=== PATIENT | male | born 1995 | race Caucasian/White ===

== ENCOUNTER 2016-10-19 13:22 | Inpatient (IN) | payer MEDICAID, OTHER ==
--- NOTE | 2016-10-19 14:00 | ED ---
General Adult HPI - General Chief complaint: Psychiatric Symptoms Stated complaint: Suicidal Time Seen by Provider: 10/19/16 13:45 Source: patient, RN notes reviewed Mode of arrival: ambulatory Limitations: no limitations - History of Present Illness Initial comments: This is a 21-year-old male presents emergency department because his been having suicidal thoughts. Patient states his been having them for years but has been getting worse lately. Patient states she's never told anybody until today. When he does mother's mother brought him into the emergency department. Patient states he's been thinking about driving his car off the road and kill himself. Patient states he doesn't really know why he is angry he did have a girlfriend that she, year ago not really upset him and made him angry. Patient states he thought he was given a Luanne her. Patient denies any alcohol use or drug use. Patient denies any physical complaints today. Patient denies headache patient denies numbness weakness. Patient denies recent fever chills or cough. Patient denies shortness of breath or difficulty breathing. Patient denies abdominal pain patient denies nausea vomiting or diarrhea. - Related Data Home Medications Medication Instructions Recorded Confirmed No Known Home Medications [No 10/19/16 10/19/16 Known Home Medications] Allergies Allergy/AdvReac Type Severity Reaction Status Date / Time No Known Allergies Allergy Verified 10/19/16 14:47 Review of Systems ROS Statement: Those systems with pertinent positive or pertinent negative responses have been documented in the HPI. ROS Other: All systems not noted in ROS Statement are negative. Past Medical History Past Medical History: No Reported History History of Any Multi-Drug Resistant Organisms: None Reported Additional Past Surgical History / Comment(s): testicular sx Past Psychological History: Depression Smoking Status: Current every day smoker Past Alcohol Use History: None Reported Past Drug Use History: None Reported General Exam - General Exam Comments Initial Comments: GENERAL: Patient is well-developed and well-nourished. Patient is nontoxic and well- hydrated and is in no acute distress. ENT: Neck is soft and supple. No significant lymphadenopathy is noted. Oropharynx is clear. Moist mucous membranes. Neck has full range of motion without eliciting any pain. There is no thyroid enlargement and no masses were felt. EYES: The sclera were anicteric and conjunctiva were pink and moist. Extraocular movements were intact and pupils were equal round and reactive to light. Eyelids were unremarkable. PULMONARY: Unlabored respirations. Good breath sounds bilaterally. No audible rales rhonchi or wheezing was noted. CARDIOVASCULAR: There is a regular rate and rhythm without any murmurs gallops or rubs. ABDOMEN: Soft and nontender with normal bowel sounds. No palpable organomegaly was noted. There is no palpable pulsatile mass. SKIN: Skin is clear with no lesions or rashes and otherwise unremarkable. NEUROLOGIC: Patient is alert and oriented x3. Cranial nerves II through XII are grossly intact. Motor and sensory are also intact. Normal speech, volume and content. Symmetrical smile. MUSCULOSKELETAL: Normal extremities with adequate strength and full range of motion. LYMPHATICS: No significant lymphadenopathy is noted PSYCHIATRIC: Patient is tearful during the interview. Patient does seem generally depressed. Patient is talking about wanting to harm himself. Limitations: no limitations Course Vital Signs 10/19/16 13:42 Temperature 98.2 F Pulse Rate 79 Respiratory 20 Rate Blood Pressure 137/79 O2 Sat by Pulse 99 Oximetry Medical Decision Making - Lab Data Lab Results 10/19/16 Range/Units 14:00 Urine Opiates Screen Not Detected (NotDetected) Ur Oxycodone Screen Not Detected (NotDetected) Urine Methadone Screen Not Detected (NotDetected) Ur Propoxyphene Screen Not Detected (NotDetected) Ur Barbiturates Screen Not Detected (NotDetected) U Tricyclic Antidepress Not Detected (NotDetected) Ur Phencyclidine Scrn Not Detected (NotDetected) Ur Amphetamines Screen Not Detected (NotDetected) U Methamphetamines Scrn Not Detected (NotDetected) U Benzodiazepines Scrn Not Detected (NotDetected) Urine Cocaine Screen Not Detected (NotDetected) U Marijuana (THC) Screen Not Detected (NotDetected) Disposition Clinical Impression: Suicidal ideation Disposition: ADMITTED IP TO THIS [facility] Time of Disposition: 16:17
[2016-10-19] MEDS ORDERED: ZIPRASIDONE 20 MG VIAL IM PRN (17:17)
[2016-10-19] MEDS ORDERED: MAGNESIUM HYDROXIDE 2,400 MG/10 ML CUP PO PRN (17:17)
[2016-10-19] MEDS ORDERED: MAG HYDROX/AL HYDROX/SIMETH 30 ML CUP PO PRN (17:17)
[2016-10-19] MEDS ORDERED: ACETAMINOPHEN TAB 325 MG TAB PO PRN (17:17)
[2016-10-19] MEDS ORDERED: LORazepam 2 MG/ML SYRINGE IM PRN (17:19)
[2016-10-19] MEDS ORDERED: LORazepam 1 MG TAB PO PRN (17:19)
[2016-10-19 18:24] VITALS: BMI 32.1
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
[2016-10-20] MEDS: ESCITALOPRAM 10 MG TAB PO SCH (09:48)
[2016-10-20] MEDS: NICOTINE 14MG/24HR PATCH TRANSDERM SCH (09:48)
[2016-10-20 10:10] LABS: Basophils # (A) 0.1 k/uL (0-0.2); Basophils % (A) 1 %; CH 31.4; CHCM 34.1; Eosinophils # (A) 0.2 k/uL (0-0.7); Eosinophils % (A) 3 %; HCT 45.1 % (39.0-53.0); HDW 2.33; HGB 15.3 gm/dL (13.0-17.5); Luc % (Auto) 1; Lymphocytes # (A) 2.2 k/uL (1.0-4.8); Lymphocytes % (A) 30 %; MCH 31.3 pg (25.0-35.0); MCHC 33.9 g/dL (31.0-37.0); MCV 92.3 fL (80.0-100.0); Mean Platelet Volume 7.4; Monocytes # (A) 0.4 k/uL (0-1.0); Monocytes % (A) 5 %; Neutrophils # (A) 4.4 k/uL (1.3-7.7); Neutrophils % (A) 60 %; RBC 4.89 m/uL (4.30-5.90); RDW 11.8 % (11.5-15.5); WBC 7.4 k/uL (4.0-11.0); WBC (Perox) 7.73
[2016-10-20 10:31] LABS: ALT 90 U/L (21-72); AST 44 U/L (17-59); Alkaline Phosphatase 69 U/L (38-126); Anion Gap 16 mmol/L; Blood Urea Nitrogen 16 mg/dL (9-20); Calcium 10.1 mg/dL (8.4-10.2); Carbon Dioxide 23 mmol/L (22-30); Chloride 104 mmol/L (98-107); Glucose 161 mg/dL (74-99); Non-African American GFR(MDRD) >60 (>60 ml/min/1.73 sqM); Potassium 4.2 mmol/L (3.5-5.1); Sodium 143 mmol/L (137-145); Total Bilirubin 0.7 mg/dL (0.2-1.3); Total Protein 7.5 g/dL (6.3-8.2)
--- NOTE | 2016-10-20 15:38 | P.CONS ---
History of Present Illness - Reason for Consult Consult date: 10/20/16 Medical management - History of Present Illness This is a 21-year-old male. His primary care physician is Dr. Powers. He has a past medical history of ADHD and has been off medication, tobacco use and dependence. Patient gives history of having depression for the past few years. He has not been on any medications. He states he is To 10 S. and has not told his family about this. He has had suicidal thoughts and make some plans but has not acted on those. He states yesterday he came home from work and he broke down and he finally told his mother who then brought him into [facility] emergency center for evaluation. ALT was 90, random blood sugar 161. Urine drug screen negative. Patient was admitted to the mental health unit. He denies any medical issues at this time. Review of Systems All systems: negative Constitutional: Denies chills, Denies fever Eyes: denies blurred vision, denies pain Ears, nose, mouth and throat: Denies headache, Denies sore throat Cardiovascular: Denies chest pain, Denies shortness of breath Respiratory: Denies cough Gastrointestinal: Denies abdominal pain, Denies diarrhea, Denies nausea, Denies vomiting Musculoskeletal: Denies myalgias Integumentary: Denies pruritus, Denies rash Neurological: Denies numbness, Denies weakness Psychiatric: Reports depression, Reports hopelessness, Reports suicidal ideation , Denies anxiety Endocrine: Denies fatigue, Denies weight change Past Medical History Past Medical History: No Reported History Additional Past Medical History / Comment(s): foot broken, cut left pinky finger. History of Any Multi-Drug Resistant Organisms: None Reported Additional Past Surgical History / Comment(s): testicular sx. Past Anesthesia/Blood Transfusion Reactions: No Reported Reaction Past Psychological History: ADD/ADHD, Depression Smoking Status: Current every day smoker Past Alcohol Use History: None Reported Additional Past Alcohol Use History / Comment(s): She is a smoker 3-4 cigarettes per day for the past 2-3 years. He denies any medical marijuana, marijuana, street drug or alcohol use. He is currently living at home with his mother. Past Drug Use History: None Reported - Past Family History Mother Additional Family Medical History / Comment(s): Mother is alive at age 44 with history of bipolar, seizures, migaines. Father Additional Family Medical History / Comment(s): Patient does not know anything about his father. Sister(s) Additional Family Medical History / Comment(s): Patient has 2 sisters ages 22 and 21 with no major medical problems. Patient has 1 brother that he does not know. He does not have any children. Medications and Allergies Home Medications Medication Instructions Recorded Confirmed Type No Known Home Medications [No 10/19/16 10/19/16 History Known Home Medications] Allergies Allergy/AdvReac Type Severity Reaction Status Date / Time No Known Allergies Allergy Verified 10/19/16 18:30 Physical Exam Vitals: Vital Signs Temp Pulse Resp BP 10/20/16 05:27 97.6 F 61 16 129/72 10/19/16 18:16 98.5 F 78 20 141/70 Intake and Output 10/19/16 10/20/16 10/20/16 22:59 06:59 14:59 Other: Weight 116.828 kg Gen: This is a 21-year-old male. He is cooperative and appears to be in no acute distress. HEENT: Head is atraumatic, normocephalic. Pupils equal, round. Sclerae is anicteric. NECK: Supple. No JVD. No lymphadenopathy. No thyromegaly. LUNGS: Clear to auscultation. No wheezes or rhonchi. No intercostal retractions. HEART: Regular rate and rhythm. No murmur. ABDOMEN: Soft. Bowel sounds are present. No masses. No tenderness. EXTREMITIES: No pedal edema. No calf tenderness. NEUROLOGICAL: Patient is awake, alert and oriented x3. Cranial nerves 2 through 12 are grossly intact. Results CBC & Chem 7: 10/20/16 09:22 10/20/16 09:22 Labs: Abnormal Lab Results - Last 24 Hours (Table) 10/20/16 Range/Units 09:22 Glucose 161 H (74-99) mg/dL ALT 90 H (21-72) U/L Assessment and Plan Plan: 1. Depression recurrent with suicidal ideation. Patient admitted to the mental health unit. Continue current plan of care. 2. Tobacco use and dependence. Continue nicotine patch. 3. History of ADHD, stable. Impression and plan of care have been directed as dictated by the signing physician. Felecia Portillo nurse practitioner acting as scribe for signing physician. Time with Patient: Greater than 30
[2016-10-21] MEDS: NICOTINE 14MG/24HR PATCH TRANSDERM SCH (08:22)
[2016-10-21] MEDS: ESCITALOPRAM 10 MG TAB PO SCH (08:22)
--- NOTE | 2016-10-21 11:32 | P.PN ---
Progress Note - Text Interval history: The patient is found in group he follows me to an interview room. He reports his mood is still down but he is feeling more hopeful. He has been attending some groups and feels better expressing some of his emotions. He finds comfort in hearing other patients have similar concerns or feelings. He has been compliant with the Lexapro and has no questions regarding that medication. His mother is scheduled to come up today for a support meeting. Mental status exam: The patient is alert he is dressed in his own clothing. Eye contact is appropriate speech is fluent nonpressured. Thought process is linear he demonstrates no tangential thinking loose associations or flight of ideas. He reports a depressed mood he presented with hopelessness thinking and suicidal thoughts but feels safe here in the hospital. No homicidal ideation. No symptoms of psychosis he does not present hypomanic or manic. There is no verbal or physical aggressiveness demonstrated. He remains alert and oriented to person place and date. Plan: The patient will continue on the Lexapro as written. We will monitor him for safety and encourage his continued participation in the milieu. I anticipate a discharge early next week if he demonstrates sufficient clinical improvement. We will await the results of a family meeting.
[2016-10-22] MEDS: ESCITALOPRAM 10 MG TAB PO SCH (09:07)
[2016-10-22] MEDS: NICOTINE 14MG/24HR PATCH TRANSDERM SCH (09:08)
--- NOTE | 2016-10-22 09:52 | P.PN ---
Progress Note - Text Interval history: The patient is found in group he follows me to an interview room. He states his mood is still down at times but overall he is feeling better. He is participating in groups and relating to peers. We discussed his medication and answered his questions about Lexapro. He had a family meeting with his mother yesterday which went well he feels. He expects further visits from his mother over the weekend. He will be following up with the [facility] counseling upon discharge. Mental status exam: The patient is alert he is dressed in his own clothing eye contact is appropriate. Speech is fluent spontaneous nonpressured. Thought process is linear he demonstrates no tangential thinking flight of ideas or loose associations. There is no evidence of psychosis or hypomanic/manic symptoms. He is reporting no acute suicidal ideation no homicidal ideation. There is no demonstration of verbal or physical aggressiveness. Insight and judgment improving. Cognitive abilities remain grossly intact. Plan: The patient will continue on his current medication Lexapro 10 mg daily. He has not been using any Ativan. If he demonstrates sufficient clinical improvement we will consider a discharge Monday. Vital signs are reviewed. He is encouraged to continue participating in the milieu and we will continue to monitor him for safety.
[2016-10-22 12:57] LABS: Appearance,Urine Clear (Clear); Bilirubin,Urine Negative (Negative); Glucose,Urine (UA) Negative (Negative); Ketones,Urine Negative (Negative); Leukocyte Esterase,Urine Negative (Negative); Nitrite,Urine Negative (Negative); PH, Urine 5.5 (5.0-8.0); Protein,Urine Negative (Negative); Specific Gravity,Urine 1.021 (1.001-1.035); UA Billing (MACRO vs. MICRO) CHEM; Urobilinogen,Urine <2.0 mg/dL (<2.0)
[2016-10-23] MEDS: NICOTINE 14MG/24HR PATCH TRANSDERM SCH (08:53)
[2016-10-23] MEDS: ESCITALOPRAM 10 MG TAB PO SCH (08:53)
--- NOTE | 2016-10-23 11:50 | P.PN ---
Progress Note - Text Interval history: The patient is found in group he follows me to an interview room. He reports his mood continues to improve. He had a good visit with his mother last evening. He was disappointed that his sister had informed mutual friends that he was in the mental health unit as he wanted to keep that private. He states he slept well last night appetite is stable he has no questions or concerns regarding the Lexapro. He continues to attend groups. Mental status exam: The patient is alert he seated calmly in the chair he is dressed in his own clothing. Eye contact is appropriate speech is fluent spontaneous nonpressured. Thought process is linear goal-directed. He reports no suicidal or homicidal ideation intent or plan. There is no evidence or report of psychosis. He does not appear hypomanic or manic. Insight and judgment improving. There is no verbal or physical aggressiveness demonstrated. Affect is becoming more euthymic. Plan: The patient will continue on the Lexapro 10 mg daily. We are planning to discharge him home tomorrow if he demonstrates continued clinical stability. We will monitor him for safety. Vital signs reviewed.
[2016-10-24 06:23] VITALS: BP 119/67; PULSE 63; RESP 12; TEMP 97.8
--- NOTE | 2016-10-24 08:32 | P.DS ---
Providers Date of admission: 10/19/16 17:13 Expected date of discharge: 10/24/16 Attending physician: Ovidio Knox Consults: 10/19/16 17:17 Consult Physician Routine Consulting Provider: Miranda Hughes Consult Reason/Comments: Medical Management Do you want consulting provider notified?: Yes Primary care physician: Thaddeus Longoria - Discharge Diagnosis(es) (1) Major depressive disorder, recurrent severe without psychotic features Current Visit: Yes Status: Acute Priority: High Hospital Course: Brief summary of admission note: The patient was admitted to the mental health unit through the emergency room. He presented with worsening symptoms of depression with suicidal ideation. He described having a plan of wanting to crash his truck into a tree or other object. He noted sleep was impaired, energy has been low, motivation for activity has been low. Appetite has been decreased and he notes weight loss. For full details please refer to my psychiatric evaluation dated 10/20/2016. Summary of hospital course: The patient was admitted to the mental health unit he did sign in voluntarily. We reviewed his symptoms and medication options and initiated Lexapro 10 mg daily. A routine medical consultation was requested. The patient attended groups he demonstrated no agitated behavior. He reported a progressive improvement of symptoms while on the mental health unit. He is noting a resolution of any suicidal ideation intent or plan. He reported great relief from being able to cathart his feelings in participating in groups. He reported a desire to continue working with an individual therapist postdischarge. Mental status exam: The patient is a male appearing his stated age. Hygiene and grooming are adequate. Speech is fluent and spontaneous nonpressured. Thought process is linear he demonstrates no circumstantial thinking, tangential thinking, loose associations or flight of ideas. He reports his mood is "good" his affect is euthymic. He denies having any suicidal ideation intent or plan. No reported homicidal ideation intent or plan. There is no report or evidence of hallucinations or specific delusions. There is no evidence of hypomanic or manic symptoms. He demonstrates no verbal or physical aggressiveness. Cognitive abilities remain grossly intact they have been stable during the course of the admission and he is alert and oriented to person place and date. Impressions 1. Major depressive disorder recurrent severe without psychosis 2. Psychosocial dysfunction secondary to depressive symptoms Plan: The patient will be discharged from the mental health unit today to return home residing with his mother. He will continue on Lexapro 10 mg daily. Social work will arrange his outpatient mental health follow-up. He will abstain from any use of alcohol or illicit drugs. There is no imminent safety risk he is appropriate for transition to outpatient psychiatric care. He is instructed to return to emergency room if any acute safety concerns. Patient Condition at Discharge: Stable Plan - Discharge Summary New Discharge Prescriptions: Escitalopram [Lexapro] 10 mg PO DAILY #30 tab Nicotine 14Mg/24Hr Patch [Habitrol] 1 patch TRANSDERM DAILY #14 patch Discharge Medication List Escitalopram [Lexapro] 10 mg PO DAILY #30 tab 10/24/16 [Rx] Nicotine 14Mg/24Hr Patch [Habitrol] 1 patch TRANSDERM DAILY #14 patch 10/24/16 [ Rx] Follow up Appointment(s)/Referral(s): Thaddeus Longoria MD [Primary Care Provider] - 1-2 days
[2016-10-24] MEDS: ESCITALOPRAM 10 MG TAB PO SCH (09:23)
[2016-10-24] MEDS: NICOTINE 14MG/24HR PATCH TRANSDERM SCH (09:23)
== END 2016-10-24 10:58 | disposition home or self-care (01) | DRG 885 ==
LOC: EC 13:22 → 3MHU 17:13
PROVIDERS: ADMIT Psychiatry & Neurology Psychiatry; ATTEND Psychiatry & Neurology Psychiatry
DX: F33.2 Major depressive disorder, recurrent severe without psychotic features (principal); R45.851 Suicidal ideations; Z81.8 Family history of other mental and behavioral disorders; Z91.410 Personal history of adult physical and sexual abuse; F17.200 Nicotine dependence, unspecified, uncomplicated
CPT/HCPCS: 80053; 80306; 81003; 82075; 84443; 85025; 99285

== ENCOUNTER 2017-09-08 19:47 | Emergency (ER) | payer OTHER ==
[2017-09-08] MEDS ORDERED: RX INFO: IV CONTRAST WAS GIVEN 1 EACH MISC MISCELLANE PRN (21:27)
[2017-09-08] MEDS ORDERED: SODIUM CHLORIDE 0.9% 1,000 ML IV STA (21:27)
--- NOTE | 2017-09-08 21:30 | ED ---
General Adult HPI - General Chief complaint: Abdominal Pain Stated complaint: abd pain Time Seen by Provider: 09/08/17 21:23 Source: patient, RN notes reviewed Mode of arrival: ambulatory Limitations: no limitations - History of Present Illness Initial comments: Patient is a pleasant 22-year-old male presenting to the emergency department with abdominal discomfort. Onset of symptoms was 2 days ago. Patient did have one episode of emesis however none today. Patient has had decreased appetite today. Patient has been slightly constipated. No fever. Discomfort is mostly periUmbilical. Patient states it does feel better to sit up. No history of similar symptoms previously. Discomfort is sharp and intermittent. Food does seem to make symptoms worse. - Related Data Home Medications Medication Instructions Recorded Confirmed No Known Home Medications [No 09/08/17 09/08/17 Known Home Medications] Allergies Allergy/AdvReac Type Severity Reaction Status Date / Time No Known Allergies Allergy Verified 09/08/17 21:33 Review of Systems ROS Statement: Those systems with pertinent positive or pertinent negative responses have been documented in the HPI. ROS Other: All systems not noted in ROS Statement are negative. Constitutional: Denies: fever Eyes: Denies: eye pain ENT: Denies: ear pain Respiratory: Denies: cough Cardiovascular: Denies: palpitations Endocrine: Denies: fatigue Gastrointestinal: Reports: abdominal pain Genitourinary: Denies: urgency, dysuria Musculoskeletal: Reports: back pain (Chronic and unchanged) Skin: Denies: rash Past Medical History Past Medical History: No Reported History Additional Past Medical History / Comment(s): foot broken, cut left pinky finger. History of Any Multi-Drug Resistant Organisms: None Reported Additional Past Surgical History / Comment(s): testicular sx. Past Anesthesia/Blood Transfusion Reactions: No Reported Reaction Past Psychological History: ADD/ADHD, Depression Smoking Status: Current some day smoker Past Alcohol Use History: Rare Past Drug Use History: None Reported - Past Family History Mother Additional Family Medical History / Comment(s): Mother is alive at age 44 with history of bipolar, seizures, migaines. Father Additional Family Medical History / Comment(s): Patient does not know anything about his father. Sister(s) Additional Family Medical History / Comment(s): Patient has 2 sisters ages 22 and 21 with no major medical problems. Patient has 1 brother that he does not know. He does not have any children. General Exam Limitations: no limitations General appearance: alert, in no apparent distress Head exam: Present: atraumatic Eye exam: Present: normal appearance, PERRL ENT exam: Present: normal oropharynx Neck exam: Present: normal inspection Respiratory exam: Present: normal lung sounds bilaterally Cardiovascular Exam: Present: regular rate, normal rhythm GI/Abdominal exam: Present: soft, tenderness (Moderate tenderness in the umbilical region), normal bowel sounds. Absent: distended, guarding, rebound, rigid, pulsatile mass Extremities exam: Present: normal inspection. Absent: pedal edema, calf tenderness Back exam: Present: normal inspection Neurological exam: Present: alert Psychiatric exam: Present: normal affect, normal mood Skin exam: Present: normal color Course Vital Signs 09/08/17 09/08/17 20:28 23:08 Temperature 99.2 F 97.9 F Pulse Rate 77 70 Respiratory 18 18 Rate Blood Pressure 132/74 147/66 O2 Sat by Pulse 100 100 Oximetry Medical Decision Making - Medical Decision Making Patient reevaluated and resting comfortably in bed. Abdominal exam unchanged. Patient is updated on results. Patient is made aware that early appendicitis cannot be ruled out completely at this time. Patient is offered admission for evaluation and surgical evaluation. Patient refuses this. Patient states he is comfortable going home however is agreeable to return if symptoms worsen or fever develops. Patient is agreeable to follow-up with primary care physician Monday. - Lab Data Result diagrams: 09/08/17 22:04 09/08/17 22:04 Lab Results 09/08/17 09/08/17 09/08/17 Range/Units 22:04 22:04 22:04 WBC 8.2 (3.8-10.6) k/uL RBC 4.86 (4.30-5.90) m/uL Hgb 14.9 (13.0-17.5) gm/dL Hct 44.1 (39.0-53.0) % MCV 90.9 (80.0-100.0) fL MCH 30.7 (25.0-35.0) pg MCHC 33.8 (31.0-37.0) g/dL RDW 11.6 (11.5-15.5) % Plt Count 273 (150-450) k/uL Neutrophils % 69 % Lymphocytes % 20 % Monocytes % 6 % Eosinophils % 3 % Basophils % 1 % Neutrophils # 5.6 (1.3-7.7) k/uL Lymphocytes # 1.7 (1.0-4.8) k/uL Monocytes # 0.5 (0-1.0) k/uL Eosinophils # 0.2 (0-0.7) k/uL Basophils # 0.0 (0-0.2) k/uL PT 10.5 (9.0-12.0) sec INR 1.0 (<1.2) APTT 24.5 (22.0-30.0) sec Sodium 140 (137-145) mmol/L Potassium 4.2 (3.5-5.1) mmol/L Chloride 102 (98-107) mmol/L Carbon Dioxide 27 (22-30) mmol/L Anion Gap 11 mmol/L BUN 17 (9-20) mg/dL Creatinine 1.00 (0.66-1.25) mg/dL Est GFR (MDRD) Af Amer >60 (>60 ml/min/1.73 sqM) Est GFR (MDRD) Non-Af >60 (>60 ml/min/1.73 sqM) Glucose 85 (74-99) mg/dL Calcium 9.8 (8.4-10.2) mg/dL Total Bilirubin 0.4 (0.2-1.3) mg/dL AST 35 (17-59) U/L ALT 66 (21-72) U/L Alkaline Phosphatase 63 (38-126) U/L Total Protein 7.5 (6.3-8.2) g/dL Albumin 4.4 (3.5-5.0) g/dL Amylase <30 L (30-110) U/L Lipase 44 (23-300) U/L Urine Color Urine Appearance (Clear) Urine pH (5.0-8.0) Ur Specific Irving (1.001-1.035) Urine Protein (Negative) Urine Glucose (UA) (Negative) Urine Ketones (Negative) Urine Blood (Negative) Urine Nitrite (Negative) Urine Bilirubin (Negative) Urine Urobilinogen (<2.0) mg/dL Ur Leukocyte Esterase (Negative) 09/08/17 Range/Units 22:53 WBC (3.8-10.6) k/uL RBC (4.30-5.90) m/uL Hgb (13.0-17.5) gm/dL Hct (39.0-53.0) % MCV (80.0-100.0) fL MCH (25.0-35.0) pg MCHC (31.0-37.0) g/dL RDW (11.5-15.5) % Plt Count (150-450) k/uL Neutrophils % % Lymphocytes % % Monocytes % % Eosinophils % % Basophils % % Neutrophils # (1.3-7.7) k/uL Lymphocytes # (1.0-4.8) k/uL Monocytes # (0-1.0) k/uL Eosinophils # (0-0.7) k/uL Basophils # (0-0.2) k/uL PT (9.0-12.0) sec INR (<1.2) APTT (22.0-30.0) sec Sodium (137-145) mmol/L Potassium (3.5-5.1) mmol/L Chloride (98-107) mmol/L Carbon Dioxide (22-30) mmol/L Anion Gap mmol/L BUN (9-20) mg/dL Creatinine (0.66-1.25) mg/dL Est GFR (MDRD) Af Amer (>60 ml/min/1.73 sqM) Est GFR (MDRD) Non-Af (>60 ml/min/1.73 sqM) Glucose (74-99) mg/dL Calcium (8.4-10.2) mg/dL Total Bilirubin (0.2-1.3) mg/dL AST (17-59) U/L ALT (21-72) U/L Alkaline Phosphatase (38-126) U/L Total Protein (6.3-8.2) g/dL Albumin (3.5-5.0) g/dL Amylase (30-110) U/L Lipase (23-300) U/L Urine Color Yellow Urine Appearance Clear (Clear) Urine pH 5.5 (5.0-8.0) Ur Specific Irving 1.021 (1.001-1.035) Urine Protein Negative (Negative) Urine Glucose (UA) Negative (Negative) Urine Ketones Negative (Negative) Urine Blood Negative (Negative) Urine Nitrite Negative (Negative) Urine Bilirubin Negative (Negative) Urine Urobilinogen <2.0 (<2.0) mg/dL Ur Leukocyte Esterase Negative (Negative) - Radiology Data Radiology results: report reviewed (Computed tomography scan of the abdomen pelvis shows appendix at 8 mm which is the upper limits of normal. No surrounding inflammation.) Disposition Clinical Impression: Abdominal pain Disposition: HOME SELF-CARE Condition: Stable Instructions: Abdominal Pain (ED) Additional Instructions: Please follow-up with primary care physician on Monday. Return for increased pain, fever, vomiting, worsening symptoms or other concerns. Referrals: Radha Mccormack MD [Primary Care Provider] - 1-2 days Time of Disposition: 23:54
[2017-09-08 22:31] LABS: Basophils % (A) 1 %; CH 31.5; CHCM 34.8; Eosinophils # (A) 0.2 k/uL (0-0.7); Eosinophils % (A) 3 %; HCT 44.1 % (39.0-53.0); HDW 2.33; HGB 14.9 gm/dL (13.0-17.5); Luc % (Auto) 3; Lymphocytes # (A) 1.7 k/uL (1.0-4.8); Lymphocytes % (A) 20 %; MCH 30.7 pg (25.0-35.0); MCHC 33.8 g/dL (31.0-37.0); MCV 90.9 fL (80.0-100.0); Mean Platelet Volume 6.3; Monocytes # (A) 0.5 k/uL (0-1.0); Monocytes % (A) 6 %; Neutrophils # (A) 5.6 k/uL (1.3-7.7); Neutrophils % (A) 69 %; RBC 4.86 m/uL (4.30-5.90); RDW 11.6 % (11.5-15.5); WBC 8.2 k/uL (3.8-10.6); WBC (Perox) 8.26
[2017-09-08 22:39] LABS: Partial Thromboplastin Time 24.5 sec (22.0-30.0); Prothrombin Time 10.5 sec (9.0-12.0)
[2017-09-08 22:41] LABS: ALT 66 U/L (21-72); AST 35 U/L (17-59); Alkaline Phosphatase 63 U/L (38-126); Amylase <30 U/L (30-110); Anion Gap 11 mmol/L; Blood Urea Nitrogen 17 mg/dL (9-20); Calcium 9.8 mg/dL (8.4-10.2); Carbon Dioxide 27 mmol/L (22-30); Chloride 102 mmol/L (98-107); Glucose 85 mg/dL (74-99); Non-African American GFR(MDRD) >60 (>60 ml/min/1.73 sqM); Potassium 4.2 mmol/L (3.5-5.1); Sodium 140 mmol/L (137-145); Total Bilirubin 0.4 mg/dL (0.2-1.3); Total Protein 7.5 g/dL (6.3-8.2)
[2017-09-08 23:07] LABS: Appearance,Urine Clear (Clear); Bilirubin,Urine Negative (Negative); Glucose,Urine (UA) Negative (Negative); Ketones,Urine Negative (Negative); Leukocyte Esterase,Urine Negative (Negative); Nitrite,Urine Negative (Negative); PH, Urine 5.5 (5.0-8.0); Protein,Urine Negative (Negative); Specific Gravity,Urine 1.021 (1.001-1.035); UA Billing (MACRO vs. MICRO) CHEM; Urobilinogen,Urine <2.0 mg/dL (<2.0)
--- NOTE | 2017-09-08 23:07 | CT ---
EXAMINATION TYPE: CT abdomen pelvis w con DATE OF EXAM: 09/08/2017 COMPARISON: NONE HISTORY: Mid to Low Abdominal pain CT DLP: 1553.9 mGycm Automated exposure control for dose reduction was used. TECHNIQUE: Helical acquisition of images was performed from the lung bases through the pelvis. CONTRAST: Performed without Oral Contrast and with IV Contrast, patient injected with 100 mL of Omnipaque 300. FINDINGS: Lung bases are clear. There is no pleural effusion. Liver spleen pancreas gallbladder appear normal. Bile ducts are not dilated. There is no adrenal mass. Kidneys show satisfactory contrast opacification. There is no hydronephrosi s. There is no retroperitoneal adenopathy. There is no ascites. Bladder distends smoothly. There is n o sign of a pelvic mass. Appendix measures 8 mm. I see no surrounding inflammatory process. There is no intestinal wall thickening. There are no dilated loops. The bony structures are intact. There is s pondylolysis of L5. IMPRESSION: SPONDYLOLYSIS OF L5. 8 MM APPENDIX WHICH IS UPPER LIMIT OF NORMAL SIZE. NO EVIDENCE OF SURROUNDING IN FLAMMATION TO SUGGEST APPENDICITIS.
[2017-09-09 00:03] VITALS: BP 120/72; PULSE 71; RESP 16; TEMP 98.1
== END 2017-09-09 00:02 | disposition home or self-care (01) ==
LOC: EC 19:47
DX: R10.33 Periumbilical pain (principal); R63.8 Other symptoms and signs concerning food and fluid intake; K59.00 Constipation, unspecified; F17.200 Nicotine dependence, unspecified, uncomplicated
CPT/HCPCS: 99284; 96360; 36415; 80053; 82150; 83690; 85025; 85610; 85730; 81003; 74177; Q9967

== ENCOUNTER 2018-03-10 17:16 | Emergency (ER) | payer OTHER ==
[2018-03-10 17:25] VITALS: BP 152/69; PULSE 67; RESP 18; TEMP 97.5
--- NOTE | 2018-03-10 18:16 | XR ---
PROCEDURE: XR hand complete RT 3 views DATE AND TIME: 03/10/2018 5:41 PM REFERRING PHYSICIAN: Shivam Antunez CLINICAL INDICATION: PHH, Pain and numbness for one week TECHNIQUE: Department protocol. COMPARISON: None FINDINGS: There is no fracture or malalignment. The soft tissues are unremarkable. IMPRESSION: NO ACUTE PROCESS.
--- NOTE | 2018-03-10 18:17 | XR ---
PROCEDURE: XR forearm RT 2 views DATE AND TIME: 03/10/2018 5:41 PM REFERRING PHYSICIAN: Shivam Antunez CLINICAL INDICATION: PHH, Pain TECHNIQUE: Department protocol. COMPARISON: None FINDINGS: There is no fracture or malalignment. The soft tissues are unremarkable. IMPRESSION: NO ACUTE PROCESS.
--- NOTE | 2018-03-10 18:36 | ED ---
General Adult HPI - General Chief complaint: Extremity Problem,Nontraumatic Stated complaint: Arm numbness Time Seen by Provider: 03/10/18 17:27 Source: patient, RN notes reviewed Mode of arrival: ambulatory Limitations: no limitations - History of Present Illness Initial comments: 22-year-old male presents to the emergency department for chief complaint of right upper extremity pain times one week. Patient states he has been working 12 hour days for the past 3 months and thinks he overdid it. Patient works in construction. Patient states using the right arm causes it to hurt worse. Patient has not taken anything for pain. Patient states he also has numbness in the first second third and half of the fourth digit. The numbness is intermittent and is not currently present. Patient denies any acute injuries. Patient is right-hand dominant and states he uses the hand mostly at work. Patient has no other complaints at this time including shortness of breath, chest pain, abdominal pain, nausea or vomiting, headache, or visual changes. - Related Data Previous Rx's Medication Instructions Recorded Ibuprofen [Motrin] 600 mg PO Q8HR PRN #20 tab 03/10/18 Allergies Allergy/AdvReac Type Severity Reaction Status Date / Time No Known Allergies Allergy Verified 09/10/17 15:02 Review of Systems ROS Statement: Those systems with pertinent positive or pertinent negative responses have been documented in the HPI. ROS Other: All systems not noted in ROS Statement are negative. Past Medical History Past Medical History: No Reported History Additional Past Medical History / Comment(s): foot broken, cut left pinky finger. History of Any Multi-Drug Resistant Organisms: None Reported Additional Past Surgical History / Comment(s): testicular sx. Past Anesthesia/Blood Transfusion Reactions: No Reported Reaction Past Psychological History: ADD/ADHD, Depression Smoking Status: Current some day smoker Past Alcohol Use History: Rare Past Drug Use History: None Reported - Past Family History Mother Additional Family Medical History / Comment(s): Mother is alive at age 44 with history of bipolar, seizures, migaines. Father Additional Family Medical History / Comment(s): Patient does not know anything about his father. Sister(s) Additional Family Medical History / Comment(s): Patient has 2 sisters ages 22 and 21 with no major medical problems. Patient has 1 brother that he does not know. He does not have any children. General Exam Limitations: no limitations General appearance: alert, in no apparent distress Head exam: Present: atraumatic, normocephalic, normal inspection Respiratory exam: Present: normal lung sounds bilaterally. Absent: respiratory distress, wheezes, rales, rhonchi, stridor Cardiovascular Exam: Present: regular rate, normal rhythm, normal heart sounds. Absent: systolic murmur, diastolic murmur, rubs, gallop, clicks Extremities exam: Present: full ROM (Full range of motion of the right upper extremity including the digits in the right hand, the right wrist, the right elbow in the right shoulder.), tenderness (Patient does have tenderness to the volar aspect of the right wrist as well as the lateral epicondyles of the right elbow. No scaphoid tenderness.), normal capillary refill (Refill less than 2 seconds and radial pulse 2+ in the right upper 70. Normal Howard test.), other ( Positive Phalen and Shelby test). Absent: pedal edema, joint swelling (No swelling in the wrist or elbow.) Course Vital Signs 03/10/18 17:22 Temperature 97.5 F L Pulse Rate 67 Respiratory 18 Rate Blood Pressure 152/69 O2 Sat by Pulse 99 Oximetry Medical Decision Making - Medical Decision Making 22-year-old male presents to the emergency department for right upper extremity pain times one week. 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 Patient is right-hand dominant states he mostly is in his right arm at work. Patient also has intermittent numbness in the first second and third digits of the right hand. No numbness right now. Patient denies any acute injuries. On exam patient has full range of motion of all joints in the right upper extremity. Neurovascular intact. Patient does have some tenderness to the volar aspect of the right wrist. Positive Shelby and Phalen test. Patient also has tenderness to the lateral epicondyle of the right elbow. X-ray of the right hand and forearm shows no acute fracture or dislocation. Patient likely has overuse injury of the right upper extremity. Patient likely has mild carpal tunnel and lateral epicondylitis. He will be given a cock-up splint for the wrist. He will rest ice and elevate the right hand. He was educated that he can wrap the right elbow for comfort. He will take Motrin. He will follow up with primary care in 1-2 days for this. Patient was educated that if it does not get better they may need to refer him to orthopedics. He will return to the emergency department if he has any worsening symptoms. Disposition Clinical Impression: Lateral epicondylitis of right elbow, Carpal tunnel syndrome of right wrist Disposition: HOME SELF-CARE Condition: Good Instructions: Tennis Elbow (ED), Paresthesia (ED) Additional Instructions: Please take Motrin as directed. Please wear cock-up splint at night on wrist. Please try to rest, ice, and elevate the wrist and elbow. Follow up with primary care in 1-2 days. Return to the emergency room if you have any worsening symptoms. Prescriptions: Ibuprofen [Motrin] 600 mg PO Q8HR PRN #20 tab PRN Reason: Pain Is patient prescribed a controlled substance at d/c from ED?: No Referrals: Radha Mccormack MD [Primary Care Provider] - 1-2 days Time of Disposition: 18:34
== END 2018-03-10 18:55 | disposition home or self-care (01) ==
LOC: EC 17:16
DX: M77.11 Lateral epicondylitis, right elbow (principal); G56.01 Carpal tunnel syndrome, right upper limb; F17.200 Nicotine dependence, unspecified, uncomplicated
CPT/HCPCS: 99283

== ENCOUNTER 2019-01-16 13:08 | Emergency (ER) | payer OTHER ==
[2019-01-16 13:35] VITALS: TEMP 99.9
--- NOTE | 2019-01-16 14:37 | XR ---
EXAMINATION TYPE: XR chest 2V DATE OF EXAM: 01/16/2019 COMPARISON: NONE HISTORY: Cough, congestion and shortness of breath TECHNIQUE: Frontal and lateral views of the chest are obtained. FINDINGS: There is no focal air space opacity, pleural effusion, or pneumothorax seen. The cardiac silhouette size is within normal limits. The osseous structures are intact. IMPRESSION: No acute cardiopulmonary process.
[2019-01-16] MEDS ORDERED: IPRATROPIUM-ALBUTEROL 3 ML NEB INHALATION STA (14:38)
[2019-01-16] MEDS ORDERED: ACETAMINOPHEN TAB 500 MG TAB PO STA (14:43)
--- NOTE | 2019-01-16 15:43 | ED ---
General Adult HPI - General Chief complaint: Upper Respiratory Infection Stated complaint: Cough, Chest Pain Time Seen by Provider: 01/16/19 14:11 Source: patient, RN notes reviewed Mode of arrival: ambulatory Limitations: no limitations - History of Present Illness Initial comments: 23-year-old male without significant past medical history presents to the emergency department for a chief complaint of off times one week. Patient states cough is productive. States he is coughing up green and brown phlegm. Patient states today he felt somewhat short of breath at work. Patient states he has had a lot of nasal congestion as well and it is draining down his throat. Patient denies any chest pain. Patient admits to "vaping." Denies smoking cigarettes. Denies any history of asthma or reactive airway disease. - Related Data Previous Rx's Medication Instructions Recorded Ibuprofen [Motrin] 600 mg PO Q8HR PRN #20 tab 03/10/18 Albuterol Inhaler [Ventolin Hfa 1 - 2 puff INHALATION Q6HR PRN #1 01/16/19 Inhaler] inhaler Azithromycin [Zithromax Z-pack] 250 mg PO DIRECTED #6 tab 01/16/19 predniSONE 50 mg PO DAILY #5 tablet 01/16/19 Allergies Allergy/AdvReac Type Severity Reaction Status Date / Time No Known Allergies Allergy Verified 01/16/19 13:35 Review of Systems ROS Statement: Those systems with pertinent positive or pertinent negative responses have been documented in the HPI. ROS Other: All systems not noted in ROS Statement are negative. Past Medical History Past Medical History: No Reported History Additional Past Medical History / Comment(s): foot broken, cut left pinky finger. History of Any Multi-Drug Resistant Organisms: None Reported Additional Past Surgical History / Comment(s): testicular sx. Past Anesthesia/Blood Transfusion Reactions: No Reported Reaction Past Psychological History: ADD/ADHD, Depression Smoking Status: Current some day smoker Past Alcohol Use History: Rare Past Drug Use History: None Reported - Past Family History Mother Additional Family Medical History / Comment(s): Mother is alive at age 44 with history of bipolar, seizures, migaines. Father Additional Family Medical History / Comment(s): Patient does not know anything about his father. Sister(s) Additional Family Medical History / Comment(s): Patient has 2 sisters ages 22 and 21 with no major medical problems. Patient has 1 brother that he does not know. He does not have any children. General Exam Limitations: no limitations General appearance: alert, in no apparent distress Head exam: Present: atraumatic, normocephalic, normal inspection Eye exam: Present: normal appearance, PERRL, EOMI. Absent: scleral icterus, conjunctival injection, periorbital swelling ENT exam: Present: normal exam, mucous membranes moist Neck exam: Present: normal inspection, full ROM. Absent: tenderness, meningismus Respiratory exam: Present: decreased breath sounds (Somewhat diminished lung sounds). Absent: respiratory distress, wheezes (No wheezing noted bilaterally), rales, rhonchi, stridor Cardiovascular Exam: Present: regular rate, normal rhythm, normal heart sounds. Absent: systolic murmur, diastolic murmur, rubs, gallop, clicks Neurological exam: Present: alert, oriented X3, CN II-XII intact Psychiatric exam: Present: normal affect, normal mood Course Vital Signs 01/16/19 01/16/19 01/16/19 13:33 14:59 15:15 Temperature 99.9 F H Pulse Rate 102 H 100 98 Respiratory 16 Rate Blood Pressure 174/75 O2 Sat by Pulse 99 Oximetry 01/16/19 15:57 Temperature Pulse Rate 99 Respiratory 18 Rate Blood Pressure 126/66 O2 Sat by Pulse 100 Oximetry - Reevaluation(s) Reevaluation #1: 01/16/19 23:23 Discussed greater than 3 minutes of smoking cessation with patient Medical Decision Making - Medical Decision Making 23-year-old male for cough 1 week mild shortness of breath starting today. Patient states cough is productive. Patient does vape. I did discuss smoking cessation for greater than 3 minutes with patient. Chest x-ray negative for pneumonia. Influenza is negative. he is 99% on room air. He does have a low- grade fever of 99.9, patient given Tylenol. Likely viral upper respiratory tract infection. However Patient will be given steroid and azithromycin. He will follow up with primary care in 1-2 days. He'll return here if he has any worsening symptoms. - Lab Data Lab Results 01/16/19 Range/Units 14:50 Influenza Type A RNA Not Detected (Not Detectd) Influenza Type B (PCR) Not Detected (Not Detectd) Disposition Clinical Impression: Cough Disposition: HOME SELF-CARE Condition: Good Instructions (If sedation given, give patient instructions): Upper Respiratory Infection (ED) Additional Instructions: Please take antibiotic and steroid as directed. Please take inhaler as needed. Follow-up with primary care in 1-2 days. Return here to the emergency department if you have any worsening symptoms. Prescriptions: predniSONE 50 mg PO DAILY #5 tablet Albuterol Inhaler [Ventolin Hfa Inhaler] 1 - 2 puff INHALATION Q6HR PRN #1 inhaler PRN Reason: Shortness Of Breath Azithromycin [Zithromax Z-pack] 250 mg PO DIRECTED #6 tab Is patient prescribed a controlled substance at d/c from ED?: No Referrals: Thaddeus Longoria MD [Primary Care Provider] - 1-2 days Time of Disposition: 15:42
[2019-01-16 16:08] VITALS: BP 126/66; PULSE 99; RESP 18
== END 2019-01-16 15:57 | disposition home or self-care (01) ==
LOC: EC 13:08
DX: R05 Cough (principal); R06.02 Shortness of breath; Z71.6 Tobacco abuse counseling; F17.200 Nicotine dependence, unspecified, uncomplicated
CPT/HCPCS: 71046; 87502; 94640; 99285; 99406

== ENCOUNTER 2019-07-25 18:03 | Emergency (ER) | payer OTHER ==
[2019-07-25 18:20] VITALS: BP 119/77; PULSE 88; RESP 18; TEMP 98.3
--- NOTE | 2019-07-25 19:19 | CT ---
EXAMINATION TYPE: CT soft tissue neck wo con DATE OF EXAM: 07/25/2019 HISTORY: Sensation of swelling LT side of throat x5 days. Feels like a ball is in his throat. COMPARISON: None CT DLP: 411.9 mGycm. Automated Exposure Control for Dose Reduction was Utilized. TECHNIQUE: CT scan of the neck is performed , no contrast. FINDINGS: Epiglottis is normal. Subglottic trachea appears normal. Cervical esophagus appears normal. There is no evidence of a foreign body. Parotid and submandibular salivary glands are symmetric. There is no cervical adenopathy. Tonsils and adenoids are within normal limits. Prevertebral soft tissues are not enlarged. The tongue appears normal. Cervical vertebra have normal spacing and alignment. There is no compression fractur e. Posterior elements are intact. There is normal aeration of the visualized paranasal sinuses. IMPRESSION: Negative CT scan of the cervical soft tissues..
--- NOTE | 2019-07-25 19:28 | ED ---
General Adult HPI - General Chief complaint: Neck Pain/Injury Stated complaint: Lump on neck Time Seen by Provider: 07/25/19 18:53 Source: patient, RN notes reviewed Mode of arrival: ambulatory Limitations: no limitations - History of Present Illness Initial comments: 24-year-old male presents to the emergency department for a chief complaint of swelling in the left side of the neck. Patient states he has had this sensation for about 5 days. He states he feels that there is a mass in the left side of his neck. He denies any difficulty swallowing or pain with swallowing. Denies sore throat symptoms. Did have a viral upper strength infection a few weeks ago. Denies fevers or chills. Denies any neck pain or stiffness. Patient is concerned because he knows his friend was just diagnosed with throat cancer from vaping and he vapes. Patient has no other complaints at this time including shortness of breath, chest pain, abdominal pain, nausea or vomiting, headache, or visual changes. - Related Data Previous Rx's Medication Instructions Recorded Ibuprofen [Motrin] 600 mg PO Q8HR PRN #20 tab 03/10/18 Albuterol Inhaler [Ventolin Hfa 1 - 2 puff INHALATION Q6HR PRN #1 01/16/19 Inhaler] inhaler Azithromycin [Zithromax Z-pack] 250 mg PO DIRECTED #6 tab 01/16/19 predniSONE 50 mg PO DAILY #5 tablet 01/16/19 Allergies Allergy/AdvReac Type Severity Reaction Status Date / Time No Known Allergies Allergy Verified 01/16/19 13:35 Review of Systems ROS Statement: Those systems with pertinent positive or pertinent negative responses have been documented in the HPI. ROS Other: All systems not noted in ROS Statement are negative. Past Medical History Past Medical History: No Reported History Additional Past Medical History / Comment(s): foot broken, cut left pinky finger. History of Any Multi-Drug Resistant Organisms: None Reported Past Surgical History: Adenoidectomy, Tonsillectomy Additional Past Surgical History / Comment(s): testicular sx. Past Anesthesia/Blood Transfusion Reactions: No Reported Reaction Past Psychological History: ADD/ADHD, Depression Smoking Status: Current every day smoker Past Alcohol Use History: Rare Past Drug Use History: None Reported - Past Family History Mother Additional Family Medical History / Comment(s): Mother is alive at age 44 with history of bipolar, seizures, migaines. Father Additional Family Medical History / Comment(s): Patient does not know anything about his father. Sister(s) Additional Family Medical History / Comment(s): Patient has 2 sisters ages 22 and 21 with no major medical problems. Patient has 1 brother that he does not know. He does not have any children. General Exam Limitations: no limitations General appearance: alert, in no apparent distress Head exam: Present: atraumatic, normocephalic, normal inspection Eye exam: Present: normal appearance, PERRL, EOMI. Absent: scleral icterus, conjunctival injection, periorbital swelling ENT exam: Present: normal exam, normal oropharynx (Oropharynx is normal. Non- erythematous. Uvula is midline. No evidence of abscess. No tonsillar exudates noted bilaterally.), mucous membranes moist Neck exam: Present: normal inspection, full ROM. Absent: tenderness, meningismus, lymphadenopathy Respiratory exam: Present: normal lung sounds bilaterally. Absent: respiratory distress, wheezes, rales, rhonchi, stridor Cardiovascular Exam: Present: regular rate, normal rhythm, normal heart sounds. Absent: systolic murmur, diastolic murmur, rubs, gallop, clicks Neurological exam: Present: alert Course Vital Signs 07/25/19 18:15 Temperature 98.3 F Pulse Rate 88 Respiratory 18 Rate Blood Pressure 119/77 O2 Sat by Pulse 98 Oximetry Medical Decision Making - Medical Decision Making Patient denies any fevers. Denies any neck pain or stiffness. Denies sore throat. Exam is unremarkable. I do not feel lymphadenopathy. Uvula is midline. There are no tonsillar exudates, patient denies any dysphasia or odynophagia. I had a lengthy discussion with patient about the risks versus benefits of CAT scan. Patient is very concerned as his boss had throat cancer in this area and would like to have CAT scan today. This was performed. Which showed a negative scan of the cervical soft tissues. Patient was informed of this and so much better. He will follow up with primary care at his appointment in 2 weeks. He will return if he has any worsening symptoms. Again patient is tolerating oral intake, no respiratory distress, no pain. Disposition Clinical Impression: Pharyngitis Disposition: HOME SELF-CARE Condition: Good Instructions (If sedation given, give patient instructions): Pharyngitis (ED) Additional Instructions: Please follow up with primary care in 1-2 days. If you're having any worsening symptoms such as unable to swallow solids or liquids return to the emergency department. Is patient prescribed a controlled substance at d/c from ED?: No Referrals: Thaddeus Longoria MD [Primary Care Provider] - 1-2 days Time of Disposition: 19:35
== END 2019-07-25 19:41 | disposition home or self-care (01) ==
LOC: EC 18:03
DX: J02.9 Acute pharyngitis, unspecified (principal); F17.200 Nicotine dependence, unspecified, uncomplicated; Z87.828 Personal history of other (healed) physical injury and trauma; Z98.890 Other specified postprocedural states
CPT/HCPCS: 70490; 99283

== ENCOUNTER 2019-09-12 10:10 | Emergency (ER) | payer OTHER ==
[2019-09-12 10:30] VITALS: RESP 16; TEMP 97.9
[2019-09-12] MEDS ORDERED: IPRATROPIUM-ALBUTEROL 3 ML NEB INHALATION STA (11:04)
[2019-09-12] MEDS ORDERED: cefTRIAXone 1,000 MG VIAL (IM USE) IM STA (11:25)
[2019-09-12] MEDS ORDERED: methylPREDNISolone SOD SUCCI 125 MG/2 ML VIAL IM ONE (11:25)
--- NOTE | 2019-09-12 11:36 | ED ---
URI HPI - General Chief Complaint: Upper Respiratory Infection Stated Complaint: Coughing Blood Time Seen by Provider: 09/12/19 10:45 Source: patient, RN notes reviewed, old records reviewed Mode of arrival: ambulatory Limitations: no limitations - History of Present Illness Initial Comments: Patient is a 24-year-old male present today with cough congestion, some shortness of breath. Patient reports he was seen by medics breath placed on Augmentin for diagnosis of strep throat this past week. Patient reports that he's had some episodes of nausea and vomiting discomfort. Denies any other significant complaints. She reports that a coughing fit restarted has some blood tinged sputum. He reports that the past week he's been sleeping in bed. Consistently, and having a poor appetite is nothing tastes good to him. He's been using dexamethasone, Flonase. - Related Data Previous Rx's Medication Instructions Recorded Ibuprofen [Motrin] 600 mg PO Q8HR PRN #20 tab 03/10/18 Albuterol Inhaler [Ventolin Hfa 1 - 2 puff INHALATION Q6HR PRN #1 01/16/19 Inhaler] inhaler Azithromycin [Zithromax Z-pack] 250 mg PO DIRECTED #6 tab 01/16/19 predniSONE 50 mg PO DAILY #5 tablet 01/16/19 Albuterol Inhaler [Ventolin Hfa 1 - 2 puff INHALATION RT-Q6H PRN 09/12/19 Inhaler] #1 inhaler Azithromycin [Zithromax Z-pack] 250 mg PO DIRECTED #6 tab 09/12/19 Allergies Allergy/AdvReac Type Severity Reaction Status Date / Time No Known Allergies Allergy Verified 09/12/19 10:30 Review of Systems ROS Statement: Those systems with pertinent positive or pertinent negative responses have been documented in the HPI. ROS Other: All systems not noted in ROS Statement are negative. Past Medical History Past Medical History: No Reported History Additional Past Medical History / Comment(s): foot broken, cut left pinky finger. History of Any Multi-Drug Resistant Organisms: None Reported Past Surgical History: Adenoidectomy, Tonsillectomy Additional Past Surgical History / Comment(s): testicular sx. Past Anesthesia/Blood Transfusion Reactions: No Reported Reaction Past Psychological History: ADD/ADHD, Depression Smoking Status: Current every day smoker Past Alcohol Use History: Rare Past Drug Use History: None Reported - Past Family History Mother Additional Family Medical History / Comment(s): Mother is alive at age 44 with history of bipolar, seizures, migaines. Father Additional Family Medical History / Comment(s): Patient does not know anything about his father. Sister(s) Additional Family Medical History / Comment(s): Patient has 2 sisters ages 22 and 21 with no major medical problems. Patient has 1 brother that he does not know. He does not have any children. General Exam - General Exam Comments Initial Comments: 24-year-old male. Alert and oriented. Limitations: no limitations General appearance: alert, in no apparent distress Head exam: Present: atraumatic, normocephalic, normal inspection Eye exam: Present: normal appearance, PERRL, EOMI. Absent: scleral icterus, conjunctival injection, periorbital swelling ENT exam: Present: normal exam, mucous membranes moist Neck exam: Present: normal inspection. Absent: tenderness, meningismus, lymphadenopathy Respiratory exam: Present: wheezes (Patient is wheezy, and tightness on the right midlung field.). Absent: normal lung sounds bilaterally, respiratory distress, rales, rhonchi, stridor Cardiovascular Exam: Present: regular rate, normal rhythm, normal heart sounds. Absent: systolic murmur, diastolic murmur, rubs, gallop, clicks GI/Abdominal exam: Present: soft, normal bowel sounds. Absent: distended, tenderness, guarding, rebound, rigid Extremities exam: Present: normal inspection, full ROM, normal capillary refill. Absent: tenderness, pedal edema, joint swelling, calf tenderness Back exam: Present: normal inspection Neurological exam: Present: alert, oriented X3, CN II-XII intact Psychiatric exam: Present: normal affect, normal mood Skin exam: Present: warm, dry, intact, normal color. Absent: rash Course Vital Signs 09/12/19 09/12/19 09/12/19 10:29 10:53 11:09 Temperature 97.9 F Pulse Rate 73 73 Respiratory 16 16 Rate Blood Pressure 132/94 O2 Sat by Pulse 96 Oximetry 09/12/19 11:19 Temperature Pulse Rate 75 Respiratory Rate Blood Pressure O2 Sat by Pulse Oximetry Medical Decision Making - Medical Decision Making Patient is a 24-year-old male presents today for evaluation for concerns for general fatigue malaise, sore throat and a productive cough. He isn't having coughing fits resume some minor blood-tinged sputum. Ascites of chest pain. No abdominal pain. He's been on Augmentin and Flonase. He states that his having worsening cough. Discussed chest x-ray is normal this time however did have some wheezing. He was given IM slight Medrol and Rocephin. We'll also have the Patient on azithromycin. Discussed completing Augmentin and azithromycin and allowing close follow-up with primary care doctor. He is alert and oral dexamethasone and advised to continue to take the last pill tomorrow. Patient is agreeable treatment plan will comply. Return parameters were discussed. - Radiology Data Radiology results: report reviewed Patient's chest x-ray is negative for any acute cardiopulmonary process. Disposition Clinical Impression: Bronchitis Disposition: HOME SELF-CARE Condition: Good Instructions (If sedation given, give patient instructions): Upper Respiratory Infection (ED) Additional Instructions: Please use medication as discussed. Please follow up with family doctor if symptoms have not improved over the next two days. Please return to the emergency room if your symptoms increase or worsen or for any other concerns. Prescriptions: Albuterol Inhaler [Ventolin Hfa Inhaler] 1 - 2 puff INHALATION RT-Q6H PRN #1 inhaler PRN Reason: Cough Azithromycin [Zithromax Z-pack] 250 mg PO DIRECTED #6 tab Is patient prescribed a controlled substance at d/c from ED?: No Referrals: Thaddeus Longoria MD [Primary Care Provider] - 1-2 days Time of Disposition: 12:29
--- NOTE | 2019-09-12 11:57 | XR ---
EXAMINATION TYPE: XR chest 2V DATE OF EXAM: 09/12/2019 COMPARISON: 01/16/2019 HISTORY: Cough and hemoptysis TECHNIQUE: Frontal and lateral views of the chest are obtained. FINDINGS: There is no focal air space opacity, pleural effusion, or pneumothorax seen. The cardiac silhouette size is within normal limits. The osseous structures are intact. IMPRESSION: No acute cardiopulmonary process.
[2019-09-12 12:36] VITALS: BP 139/73; PULSE 74
== END 2019-09-12 12:36 | disposition home or self-care (01) ==
LOC: EC 10:10
DX: J40 Bronchitis, not specified as acute or chronic (principal); F17.200 Nicotine dependence, unspecified, uncomplicated
CPT/HCPCS: 71046; 94640; 96372; 99284

== ENCOUNTER 2019-09-16 15:49 | Emergency (ER) | payer OTHER ==
[2019-09-16] MEDS ORDERED: KETOROLAC 30 MG/ML 1 ML VIAL IVP STA (16:58)
[2019-09-16] MEDS ORDERED: SODIUM CHLORIDE 0.9% 1,000 ML IV STA (16:58)
[2019-09-16 17:13] VITALS: RESP 16
[2019-09-16 17:19] LABS: Appearance,Urine Clear (Clear); Basophils # (A) 0.1 k/uL (0-0.2); Basophils % (A) 1 %; Bilirubin,Urine Negative (Negative); Blood,Urine Negative (Negative); Color,Urine Light Yellow; Eosinophils # (A) 0.4 k/uL (0-0.7); Eosinophils % (A) 3 %; Glucose,Urine (UA) Negative (Negative); HCT 41.7 % (39.0-53.0); HGB 14.3 gm/dL (13.0-17.5); Ketones,Urine Negative (Negative); Leukocyte Esterase,Urine Negative (Negative); Lymphocytes # (A) 2.7 k/uL (1.0-4.8); Lymphocytes % (A) 21 %; MCH 31.2 pg (25.0-35.0); MCHC 34.3 g/dL (31.0-37.0); MCV 91.1 fL (80.0-100.0); Mean Platelet Volume 6.8; Monocytes # (A) 0.6 k/uL (0-1.0); Monocytes % (A) 5 %; Neutrophils # (A) 8.7 k/uL (1.3-7.7); Neutrophils % (A) 68 %; Nitrite,Urine Negative (Negative); Platelet Count 414 k/uL (150-450); Protein,Urine Negative (Negative); RBC 4.58 m/uL (4.30-5.90); RDW 11.7 % (11.5-15.5); Urobilinogen,Urine <2.0 mg/dL (<2.0); WBC 12.9 k/uL (3.8-10.6)
[2019-09-16 17:29] LABS: ALT 97 U/L (21-72); AST 34 U/L (17-59); African American GFR (CKD) >90 (>60 ml/min/1.73 sqM); Albumin 4.2 g/dL (3.5-5.0); Alkaline Phosphatase 68 U/L (38-126); Anion Gap 11 mmol/L; Blood Urea Nitrogen 18 mg/dL (9-20); Calcium 9.8 mg/dL (8.4-10.2); Carbon Dioxide 27 mmol/L (22-30); Chloride 103 mmol/L (98-107); Glucose 90 mg/dL (74-99); Non-African American GFR(CKD) >90 (>60 ml/min/1.73 sqM); Potassium 4.2 mmol/L (3.5-5.1); Sodium 141 mmol/L (137-145); Total Bilirubin 0.4 mg/dL (0.2-1.3); Total Protein 7.5 g/dL (6.3-8.2)
--- NOTE | 2019-09-16 17:31 | XR ---
EXAMINATION TYPE: XR KUB DATE OF EXAM: 09/16/2019 COMPARISON: NONE HISTORY: Back pain TECHNIQUE: 2 views FINDINGS: There is no sign of intestinal obstruction or pneumoperitoneum. Fecal pattern is normal. Th ere are no pathologic calcifications over the kidneys. Lung bases are clear. IMPRESSION: Nonacute abdomen.
--- NOTE | 2019-09-16 17:55 | ED ---
Abdominal Pain HPI - General Chief Complaint: Abdominal Pain Stated Complaint: Lower Back Pain Time Seen by Provider: 09/16/19 16:30 Source: patient Mode of arrival: ambulatory Limitations: no limitations - History of Present Illness Initial Comments: Patient is a 24-year-old male presenting to emergency Department with complaints of left-sided abdominal pain x 2 days. Patient noticed the pain in his lower back yesterday and then now today has progressed to his left side of his abdomen and left lower quadrant. Patient describes the pain as sharp and sudden at times. He states the pain as coming and going. Patient denies fever, chills, nausea, vomiting. Patient has no urinary complaints. Patient has been having regular bowel movements. Patient denies history of kidney stones. Denies abdominal surgeries. Patient does admit to currently being on azithromycin as well as Augmentin for upper respiratory infection. Patient has no other co mplaints at this time. Upon arrival to the ER, vital signs are stable. - Related Data Previous Rx's Medication Instructions Recorded Ibuprofen [Motrin] 600 mg PO Q8HR PRN #20 tab 03/10/18 Albuterol Inhaler [Ventolin Hfa 1 - 2 puff INHALATION Q6HR PRN #1 01/16/19 Inhaler] inhaler Azithromycin [Zithromax Z-pack] 250 mg PO DIRECTED #6 tab 01/16/19 predniSONE 50 mg PO DAILY #5 tablet 01/16/19 Albuterol Inhaler [Ventolin Hfa 1 - 2 puff INHALATION RT-Q6H PRN 09/12/19 Inhaler] #1 inhaler Azithromycin [Zithromax Z-pack] 250 mg PO DIRECTED #6 tab 09/12/19 Allergies Allergy/AdvReac Type Severity Reaction Status Date / Time No Known Allergies Allergy Verified 09/12/19 10:30 Review of Systems ROS Statement: Those systems with pertinent positive or pertinent negative responses have been documented in the HPI. ROS Other: All systems not noted in ROS Statement are negative. Past Medical History Past Medical History: No Reported History Additional Past Medical History / Comment(s): foot broken, cut left pinky finger. History of Any Multi-Drug Resistant Organisms: None Reported Past Surgical History: Adenoidectomy, Tonsillectomy Additional Past Surgical History / Comment(s): testicular sx. Past Anesthesia/Blood Transfusion Reactions: No Reported Reaction Past Psychological History: ADD/ADHD, Anxiety, Bipolar, Depression Smoking Status: Former smoker Past Alcohol Use History: Rare Past Drug Use History: None Reported - Past Family History Mother Additional Family Medical History / Comment(s): Mother is alive at age 44 with history of bipolar, seizures, migaines. Father Additional Family Medical History / Comment(s): Patient does not know anything about his father. Sister(s) Additional Family Medical History / Comment(s): Patient has 2 sisters ages 22 and 21 with no major medical problems. Patient has 1 brother that he does not know. He does not have any children. General Exam - General Exam Comments Initial Comments: GENERAL: Well-appearing, well-nourished and in no acute distress. HEAD: Atraumatic, normocephalic. EYES: Pupils equal round and reactive to light, extraocular movements intact, sclera anicteric, conjunctiva are normal. ENT: TMs normal, nares patent, oropharynx clear without exudates. Moist mucous membranes. NECK: Normal range of motion, supple without lymphadenopathy or JVD. LUNGS: Breath sounds clear to auscultation bilaterally and equal. No wheezes rales or rhonchi. HEART: Regular rate and rhythm without murmurs, rubs or gallops. ABDOMEN: Pain with palpation of the left abdomen, left lower quadrant as well as left flank pain. Soft, normoactive bowel sounds. No guarding, no rebound. No masses appreciated. : Deferred EXTREMITIES: Normal range of motion, no pitting or edema. No clubbing or cyanosis. NEUROLOGICAL: Cranial nerves II through XII grossly intact. Normal speech, normal gait. PSYCH: Normal mood, normal affect. SKIN: Warm, Dry, normal turgor, no rashes or lesions noted. Limitations: no limitations Course Vital Signs 09/16/19 09/16/19 09/16/19 15:54 17:12 18:37 Temperature 98.0 F 98.2 F Pulse Rate 86 72 Respiratory 20 16 16 Rate Blood Pressure 129/82 140/79 O2 Sat by Pulse 98 100 Oximetry Medical Decision Making - Medical Decision Making Patient is a 24-year-old male presenting with left abdominal, left flank and left lower quadrant pain since yesterday. Vital signs are stable. Labs shows slight leukocytosis at 12.9, site a LT elevation at 97. Rest of labs are anna l. UA is normal. KUB is normal. Patient was given fluids and pain medication. Given patient's continued pain a CT of the abdomen was ordered. CT is normal. I discussed with patient the findings and stated this could be related to the Augmentin he is taking or possible gastroenteritis. Patient will continue with Tylenol or Motrin for pain relief. Patient will follow up with his PCP if sympt oms persist. Patient is stable for discharge at this time. Return parameters were discussed with the patient and he verbalized understanding. Case discussed with Dr. Carter. - Lab Data Result diagrams: 09/16/19 17:10 09/16/19 17:10 Lab Results 09/16/19 09/16/19 09/16/19 Range/Units 17:10 17:10 17:10 WBC 12.9 H (3.8-10.6) k/uL RBC 4.58 (4.30-5.90) m/uL Hgb 14.3 (13.0-17.5) gm/dL Hct 41.7 (39.0-53.0) % MCV 91.1 (80.0-100.0) fL MCH 31.2 (25.0-35.0) pg MCHC 34.3 (31.0-37.0) g/dL RDW 11.7 (11.5-15.5) % Plt Count 414 (150-450) k/uL Neutrophils % 68 % Lymphocytes % 21 % Monocytes % 5 % Eosinophils % 3 % Basophils % 1 % Neutrophils # 8.7 H (1.3-7.7) k/uL Lymphocytes # 2.7 (1.0-4.8) k/uL Monocytes # 0.6 (0-1.0) k/uL Eosinophils # 0.4 (0-0.7) k/uL Basophils # 0.1 (0-0.2) k/uL Sodium 141 (137-145) mmol/L Potassium 4.2 (3.5-5.1) mmol/L Chloride 103 (98-107) mmol/L Carbon Dioxide 27 (22-30) mmol/L Anion Gap 11 mmol/L BUN 18 (9-20) mg/dL Creatinine 0.99 (0.66-1.25) mg/dL Est GFR (CKD-EPI)AfAm >90 (>60 ml/min/1.73 sqM) Est GFR (CKD-EPI)NonAf >90 (>60 ml/min/1.73 sqM) Glucose 90 (74-99) mg/dL Calcium 9.8 (8.4-10.2) mg/dL Total Bilirubin 0.4 (0.2-1.3) mg/dL AST 34 (17-59) U/L ALT 97 H (21-72) U/L Alkaline Phosphatase 68 (38-126) U/L Total Protein 7.5 (6.3-8.2) g/dL Albumin 4.2 (3.5-5.0) g/dL Urine Color Light Yellow Urine Appearance Clear (Clear) Urine pH 5.0 (5.0-8.0) Ur Specific [place] 1.010 (1.001-1.035) Urine Protein Negative (Negative) Urine Glucose (UA) Negative (Negative) Urine Ketones Negative (Negative) Urine Blood Negative (Negative) Urine Nitrite Negative (Negative) Urine Bilirubin Negative (Negative) Urine Urobilinogen <2.0 (<2.0) mg/dL Ur Leukocyte Esterase Negative (Negative) Disposition Clinical Impression: Abdominal pain Disposition: HOME SELF-CARE Condition: Stable Instructions (If sedation given, give patient instructions): Abdominal Pain (ED) Additional Instructions: Please return to the Emergency Department if symptoms worsen or any other concerns. Follow-up with PCP if symptoms persist. Is patient prescribed a controlled substance at d/c from ED?: No Referrals: Thaddeus Longoria MD [Primary Care Provider] - 1-2 days
--- NOTE | 2019-09-16 18:13 | CT ---
EXAMINATION TYPE: CT abdomen pelvis w con DATE OF EXAM: 09/16/2019 COMPARISON: September 10, 2017 HISTORY: Left flank and LLQ pain CT DLP: 1684.1 mGycm Automated exposure control for dose reduction was used. CONTRAST: Performed with IV Contrast, patient injected with 100 mL of Isovue 300. Multiple axial sections were obtained from the diaphragm to the floor the pelvis with intravenous con trast. FINDINGS: Lung bases are clear. There is no pleural effusion. Heart size is normal. Liver spleen pancreas gallbladder appear normal. Bile ducts are not dilated. Stomach is intact. There is no adrenal mass. Kidneys show satisfactory contrast opacification. There is no hydronephrosi s. Ureters are not dilated. There is no retroperitoneal adenopathy. Bladder distends smoothly. There is no inguinal hernia. There is no free fluid in the pelvis. There is no sign of a pelvic mass. Appendix is posterior and appears normal. There is no mesenteric edema. There is no ascites or free a ir. There is no sign of a bowel obstruction. Lumbar vertebra have fairly normal spacing and alignment. Bony pelvis is intact. There is L5 spondylo lysis with 3 mm spondylolisthesis. IMPRESSION: Normal appendix. No sign of acute abdomen and pelvis. L5 spondylolysis with minimal spondylolisthesis. No change compared to old exam.
[2019-09-16 18:38] VITALS: BP 140/79; PULSE 72; TEMP 98.2
== END 2019-09-16 18:40 | disposition home or self-care (01) ==
LOC: EC 15:49
DX: R10.32 Left lower quadrant pain (principal); D72.829 Elevated white blood cell count, unspecified; R74.8 Abnormal levels of other serum enzymes; J06.9 Acute upper respiratory infection, unspecified; M54.5 Low back pain; Z87.891 Personal history of nicotine dependence; Z90.89 Acquired absence of other organs
CPT/HCPCS: 36415; 80053; 85025; 81003; 74018; 74177; 99284; 96374; 96361; J1885; Q9967

== ENCOUNTER 2019-11-12 08:22 | Emergency (ER) | payer OTHER ==
[2019-11-12 08:31] VITALS: TEMP 98.1
--- NOTE | 2019-11-12 08:54 | ED ---
General Adult HPI - General Chief complaint: Upper Respiratory Infection Stated complaint: Upper respitory issues Time Seen by Provider: 11/12/19 08:30 Source: patient, RN notes reviewed, old records reviewed Mode of arrival: ambulatory Limitations: no limitations - History of Present Illness Initial comments: This a 24-year-old male who presents to the emergency department complaining of a runny nose and drainage and a cough for the last 2 days. Patient states he is mildly short of breath. Patient states he is a smoker. Patient denies any chest pain or palpitations. Patient denies any abdominal pain patient denies nausea vomiting diarrhea. Patient denies any rashes. Patient denies any facial tenderness. Patient denies any sore throat or ear pain. - Related Data Previous Rx's Medication Instructions Recorded Ibuprofen [Motrin] 600 mg PO Q8HR PRN #20 tab 03/10/18 Albuterol Inhaler [Ventolin Hfa 1 - 2 puff INHALATION Q6HR PRN #1 01/16/19 Inhaler] inhaler Azithromycin [Zithromax Z-pack] 250 mg PO DIRECTED #6 tab 01/16/19 predniSONE 50 mg PO DAILY #5 tablet 01/16/19 Albuterol Inhaler [Ventolin Hfa 1 - 2 puff INHALATION RT-Q6H PRN 09/12/19 Inhaler] #1 inhaler Azithromycin [Zithromax Z-pack] 250 mg PO DIRECTED #6 tab 09/12/19 Allergies Allergy/AdvReac Type Severity Reaction Status Date / Time No Known Allergies Allergy Verified 11/12/19 08:31 Review of Systems ROS Statement: Those systems with pertinent positive or pertinent negative responses have been documented in the HPI. ROS Other: All systems not noted in ROS Statement are negative. Past Medical History Past Medical History: No Reported History Additional Past Medical History / Comment(s): foot broken, cut left pinky finger. History of Any Multi-Drug Resistant Organisms: None Reported Past Surgical History: Adenoidectomy, Tonsillectomy Additional Past Surgical History / Comment(s): testicular sx. Past Anesthesia/Blood Transfusion Reactions: No Reported Reaction Past Psychological History: ADD/ADHD, Anxiety, Bipolar, Depression Smoking Status: Current some day smoker Past Alcohol Use History: Rare Past Drug Use History: None Reported - Past Family History Mother Additional Family Medical History / Comment(s): Mother is alive at age 44 with history of bipolar, seizures, migaines. Father Additional Family Medical History / Comment(s): Patient does not know anything about his father. Sister(s) Additional Family Medical History / Comment(s): Patient has 2 sisters ages 22 and 21 with no major medical problems. Patient has 1 brother that he does not know. He does not have any children. General Exam - General Exam Comments Initial Comments: GENERAL: Patient is well-developed and well-nourished. Patient is nontoxic and well-hydrated and is in no acute distress. ENT: Neck is soft and supple. No significant lymphadenopathy is noted. Oropharynx is clear. Moist mucous membranes. Neck has full range of motion without eliciting any pain. EYES: The sclera were anicteric and conjunctiva were pink and moist. Extraocular movements were intact and pupils were equal round and reactive to light. Eyelids were unremarkable. PULMONARY: Unlabored respirations. Good breath sounds bilaterally. No audible rales rhonchi or wheezing was noted. CARDIOVASCULAR: There is a regular rate and rhythm without any murmurs gallops or rubs. ABDOMEN: Soft and nontender with normal bowel sounds. SKIN: Skin is clear with no lesions or rashes and otherwise unremarkable. NEUROLOGIC: Patient is alert and oriented x3. Cranial nerves II through XII are grossly intact. Motor and sensory are also intact. Normal speech, volume and content. Symmetrical smile. MUSCULOSKELETAL: Normal extremities with adequate strength and full range of motion. LYMPHATICS: No significant lymphadenopathy is noted PSYCHIATRIC: Normal psychiatric evaluation. Limitations: no limitations Course Vital Signs 11/12/19 11/12/19 08:26 09:14 Temperature 98.1 F Pulse Rate 85 Respiratory 16 16 Rate Blood Pressure 148/96 O2 Sat by Pulse 96 Oximetry Medical Decision Making - Medical Decision Making Chest x-ray is normal. - Lab Data Lab Results 11/12/19 Range/Units 08:48 Influenza Type A RNA Not Detected (Not Detectd) Influenza Type B (PCR) Not Detected (Not Detectd) Disposition Clinical Impression: Upper respiratory tract infection Disposition: HOME SELF-CARE Condition: Good Instructions (If sedation given, give patient instructions): Upper Respiratory Infection (ED) Is patient prescribed a controlled substance at d/c from ED?: No Referrals: Thaddeus Longoria MD [Primary Care Provider] - 1-2 days Time of Disposition: 09:30
--- NOTE | 2019-11-12 09:18 | XR ---
EXAMINATION TYPE: XR chest 2V DATE OF EXAM: 11/12/2019 COMPARISON: 09/12/2019 HISTORY: 24-year-old male shortness of breath, difficulty breathing TECHNIQUE: PA and lateral views FINDINGS: Heart normal size. Aorta and pulmonary vasculature within normal limits. Mild central peribronchial c uffing without consolidation or pleural effusion. IMPRESSION: Mild central peribronchial cuffing could reflect bronchitis or asthma. No focal infiltrate.
[2019-11-12 09:40] VITALS: BP 132/83; PULSE 76; RESP 6
== END 2019-11-12 09:36 | disposition home or self-care (01) ==
LOC: EC 08:22
DX: J06.9 Acute upper respiratory infection, unspecified (principal); F17.200 Nicotine dependence, unspecified, uncomplicated
CPT/HCPCS: 71046; 87502; 99284

== ENCOUNTER 2020-03-31 17:37 | Emergency (ER) | payer OTHER ==
[2020-03-31 17:50] VITALS: BP 134/85; PULSE 84; RESP 18; TEMP 98.1
--- NOTE | 2020-03-31 18:29 | ED ---
Male Urogenital HPI - General Chief complaint: Urogenital Stated complaint: prostate problem Time Seen by Provider: 03/31/20 18:15 Source: patient, RN notes reviewed Mode of arrival: ambulatory Limitations: no limitations - History of Present Illness Initial comments: 24-year-old male presents emergency Department with chief complaint of problems urinating. Patient states that he was having a bowel movement other day and states that he feels like he ejaculated. Patient states that he had another episode but never saw anything like the first time. Patient states he did strain slightly when he had the bowel movement. Patient denies any melena hematochezia. Patient states that he is also does have some discharge whitish to yellow discharge. He also has sensation he has to urinate frequently but now is urinating. He's had some discomfort or achiness of his testicles but no swelling and no tenderness with palpation. Patient denies any fevers chills no abdominal complaints no flank pain at this time states he has had in the past. - Related Data Previous Rx's Medication Instructions Recorded Ibuprofen [Motrin] 600 mg PO Q8HR PRN #20 tab 03/10/18 Albuterol Inhaler (Mhu) [Ventolin 1 - 2 puff INHALATION Q6HR PRN #1 01/16/19 Hfa Inhaler (Mhu)] inhaler Azithromycin [Zithromax Z-pack] 250 mg PO DIRECTED #6 tab 01/16/19 predniSONE 50 mg PO DAILY #5 tablet 01/16/19 Albuterol Inhaler (Mhu) [Ventolin 1 - 2 puff INHALATION RT-Q6H PRN 09/12/19 Hfa Inhaler (Mhu)] #1 inhaler Azithromycin [Zithromax Z-pack] 250 mg PO DIRECTED #6 tab 09/12/19 Allergies Allergy/AdvReac Type Severity Reaction Status Date / Time No Known Allergies Allergy Verified 03/31/20 17:50 Review of Systems ROS Statement: Those systems with pertinent positive or pertinent negative responses have been documented in the HPI. ROS Other: All systems not noted in ROS Statement are negative. Past Medical History Past Medical History: No Reported History Additional Past Medical History / Comment(s): foot broken, cut left pinky finger. History of Any Multi-Drug Resistant Organisms: None Reported Past Surgical History: Adenoidectomy, Tonsillectomy Additional Past Surgical History / Comment(s): testicular sx. Past Anesthesia/Blood Transfusion Reactions: No Reported Reaction Past Psychological History: ADD/ADHD, Anxiety, Bipolar, Depression Smoking Status: Current some day smoker Past Alcohol Use History: Rare Past Drug Use History: None Reported - Past Family History Mother Additional Family Medical History / Comment(s): Mother is alive at age 44 with history of bipolar, seizures, migaines. Father Additional Family Medical History / Comment(s): Patient does not know anything about his father. Sister(s) Additional Family Medical History / Comment(s): Patient has 2 sisters ages 22 and 21 with no major medical problems. Patient has 1 brother that he does not know. He does not have any children. General Exam Limitations: no limitations General appearance: alert, in no apparent distress Head exam: Present: atraumatic, normocephalic, normal inspection Eye exam: Present: normal appearance, PERRL, EOMI. Absent: scleral icterus, conjunctival injection, periorbital swelling ENT exam: Present: mucous membranes moist Respiratory exam: Present: normal lung sounds bilaterally. Absent: respiratory distress, wheezes, rales, rhonchi, stridor Cardiovascular Exam: Present: regular rate, normal rhythm, normal heart sounds. Absent: systolic murmur, diastolic murmur, rubs, gallop, clicks GI/Abdominal exam: Present: soft, normal bowel sounds. Absent: distended, tenderness, guarding, rebound, rigid exam: Present: normal inspection, urethral discharge, circumcision. Absent: testicular tenderness, scrotal swelling, vertical testicular lie Back exam: Absent: CVA tenderness (R), CVA tenderness (L) Course Vital Signs 03/31/20 17:44 Temperature 98.1 F Pulse Rate 84 Respiratory 18 Rate Blood Pressure 134/85 O2 Sat by Pulse 100 Oximetry Medical Decision Making - Medical Decision Making 24-year-old male presented for problems urinating. His exam does not reveal icing other mild discharge. Urinalysis is unremarkable. I do have concerns that he has urethritis most likely underlying STD. Gonorrhea and chlamydia was ordered. Patient was given Rocephin, azithromycin. Patient will be discharged at this time with follow-up with urology. - Lab Data Lab Results 03/31/20 Range/Units 18:50 Urine Color Yellow Urine Appearance Clear (Clear) Urine pH 5.0 (5.0-8.0) Ur Specific [place] 1.014 (1.001-1.035) Urine Protein Negative (Negative) Urine Glucose (UA) Negative (Negative) Urine Ketones Negative (Negative) Urine Blood Negative (Negative) Urine Nitrite Negative (Negative) Urine Bilirubin Negative (Negative) Urine Urobilinogen <2.0 (<2.0) mg/dL Ur Leukocyte Esterase Negative (Negative) Disposition Clinical Impression: Urethritis Disposition: HOME SELF-CARE Condition: Stable Instructions (If sedation given, give patient instructions): Nonspecific Urethritis in Men (ED) Additional Instructions: Please return to the Emergency Department if symptoms worsen or any other concerns. Is patient prescribed a controlled substance at d/c from ED?: No Referrals: Thaddeus Longoria MD [Primary Care Provider] - 1-2 days Sree Feldman MD [STAFF PHYSICIAN] - 1-2 days Time of Disposition: 19:04
[2020-03-31 19:00] LABS: Appearance,Urine Clear (Clear); Bilirubin,Urine Negative (Negative); Blood,Urine Negative (Negative); Color,Urine Yellow; Glucose,Urine (UA) Negative (Negative); Ketones,Urine Negative (Negative); Leukocyte Esterase,Urine Negative (Negative); Nitrite,Urine Negative (Negative); Protein,Urine Negative (Negative); Specific Gravity,Urine 1.014 (1.001-1.035); Urobilinogen,Urine <2.0 mg/dL (<2.0)
[2020-03-31] MEDS ORDERED: cefTRIAXone 250 MG VIAL IM STA (19:01)
[2020-03-31] MEDS ORDERED: AZITHROMYCIN 250 MG TAB PO STA (19:01)
[2020-04-02 15:04] LABS: C. trachomatis,PCR Negative (Neg,Equiv); Chlamydia trachomatis Source Urine; N. gonorrhoeae,PCR Negative (Neg,Equiv); Neisseria Source Urine
== END 2020-03-31 19:55 | disposition home or self-care (01) ==
LOC: EC 17:37
DX: R36.9 Urethral discharge, unspecified (principal); F17.200 Nicotine dependence, unspecified, uncomplicated; N34.2 Other urethritis
CPT/HCPCS: 81003; 87491; 87591; 96372; 99283; J0696

== ENCOUNTER 2020-05-07 10:11 | Emergency (ER) | payer OTHER ==
[2020-05-07] MEDS ORDERED: SODIUM CHLORIDE 0.9% 1,000 ML IV STA (10:40)
--- NOTE | 2020-05-07 10:44 | ED ---
General Adult HPI - General Chief complaint: Allergic Reaction Stated complaint: poss med reaction Time Seen by Provider: 05/07/20 10:23 Source: patient, RN notes reviewed Mode of arrival: ambulatory Limitations: no limitations - History of Present Illness Initial comments: Patient is a pleasant 25-year-old male presenting to the emergency department wi complaints of possible medication reaction. Patient questions if he could have reactions to his strattera. Patient has been on it for around 4 months. Patient did have similar reaction previously with different ADHD medication however is unclear what the name of it was. Patient feels shaky and fatigue/generally weak. Patient states symptoms have improved over the past hour or 2, approximately 50% and are mild at this time. - Related Data Home Medications Medication Instructions Recorded Confirmed Albuterol Sulfate [Ventolin HFA] 1 - 2 puff INHALATION RT-Q6H PRN 05/07/20 05/07/20 Atomoxetine HCl [Strattera] 60 mg PO DAILY 05/07/20 05/07/20 Ibuprofen [Motrin Ib] 600 mg PO Q8H PRN 05/07/20 05/07/20 Allergies Allergy/AdvReac Type Severity Reaction Status Date / Time No Known Allergies Allergy Verified 05/07/20 10:37 Review of Systems ROS Statement: Those systems with pertinent positive or pertinent negative responses have been documented in the HPI. ROS Other: All systems not noted in ROS Statement are negative. Constitutional: Denies: fever, chills Eyes: Denies: eye pain ENT: Denies: ear pain Respiratory: Denies: cough Cardiovascular: Denies: chest pain Endocrine: Reports: fatigue Gastrointestinal: Denies: abdominal pain Genitourinary: Denies: dysuria Musculoskeletal: Denies: back pain Skin: Denies: rash Neurological: Denies: weakness Past Medical History Past Medical History: No Reported History Additional Past Medical History / Comment(s): foot broken, cut left pinky finger. History of Any Multi-Drug Resistant Organisms: None Reported Past Surgical History: Adenoidectomy, Tonsillectomy Additional Past Surgical History / Comment(s): testicular sx. Past Anesthesia/Blood Transfusion Reactions: No Reported Reaction Past Psychological History: ADD/ADHD, Anxiety, Bipolar, Depression Smoking Status: Current every day smoker Past Alcohol Use History: Rare Past Drug Use History: None Reported - Past Family History Mother Additional Family Medical History / Comment(s): Mother is alive at age 44 with history of bipolar, seizures, migaines. Father Additional Family Medical History / Comment(s): Patient does not know anything about his father. Sister(s) Additional Family Medical History / Comment(s): Patient has 2 sisters ages 22 and 21 with no major medical problems. Patient has 1 brother that he does not know. He does not have any children. General Exam Limitations: no limitations General appearance: alert, in no apparent distress Head exam: Present: normocephalic Eye exam: Present: normal appearance, PERRL, EOMI. Absent: nystagmus Neck exam: Present: normal inspection Respiratory exam: Present: normal lung sounds bilaterally Cardiovascular Exam: Present: regular rate, normal rhythm, normal heart sounds GI/Abdominal exam: Present: soft. Absent: tenderness Extremities exam: Present: normal inspection Neurological exam: Present: alert, oriented X3, CN II-XII intact. Absent: motor sensory deficit Expanded Cranial nerves: EOM's Intact: Normal Motor strength exam: RUE: 5, LUE: 5, RLE: 5, LLE: 5 Eye Response: (4) open spontaneously Motor Response: (6) obeys commands Verbal Response: (5) oriented Psychiatric exam: Present: normal affect, normal mood Skin exam: Present: normal color Course Vital Signs 05/07/20 10:17 Temperature 98.2 F Pulse Rate 89 Respiratory 16 Rate Blood Pressure 129/91 O2 Sat by Pulse 96 Oximetry Medical Decision Making - Medical Decision Making Patient reevaluated and even further improved. Patient is comfortable with discharge home. 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 Patient is advised to have this rechecked. Patient also advised to hold his Strattera until follow-up with his doctor. - Lab Data Result diagrams: 05/07/20 10:51 05/07/20 11:57 Lab Results 05/07/20 05/07/20 05/07/20 Range/Units 10:49 10:51 11:57 WBC 7.2 (3.8-10.6) k/uL RBC 4.85 (4.30-5.90) m/uL Hgb 14.7 (13.0-17.5) gm/dL Hct 44.9 (39.0-53.0) % MCV 92.6 (80.0-100.0) fL MCH 30.4 (25.0-35.0) pg MCHC 32.8 (31.0-37.0) g/dL RDW 12.2 (11.5-15.5) % Plt Count 301 (150-450) k/uL Neutrophils % 64 % Lymphocytes % 22 % Monocytes % 6 % Eosinophils % 6 % Basophils % 1 % Neutrophils # 4.6 (1.3-7.7) k/uL Lymphocytes # 1.6 (1.0-4.8) k/uL Monocytes # 0.4 (0-1.0) k/uL Eosinophils # 0.4 (0-0.7) k/uL Basophils # 0.0 (0-0.2) k/uL Sodium 136 L (137-145) mmol/L Potassium 4.1 (3.5-5.1) mmol/L Chloride 108 H (98-107) mmol/L Carbon Dioxide 23 (22-30) mmol/L Anion Gap 5 mmol/L BUN 12 (9-20) mg/dL Creatinine 0.74 (0.66-1.25) mg/dL Est GFR (CKD-EPI)AfAm >90 (>60 ml/min/1.73 sqM) Est GFR (CKD-EPI)NonAf >90 (>60 ml/min/1.73 sqM) Glucose 92 (74-99) mg/dL Calcium 9.3 (8.4-10.2) mg/dL Total Bilirubin 0.4 (0.2-1.3) mg/dL AST 38 (17-59) U/L ALT 44 (4-49) U/L Alkaline Phosphatase 65 (38-126) U/L Creatine Kinase 466 H (55-170) U/L Total Protein 6.7 (6.3-8.2) g/dL Albumin 4.1 (3.5-5.0) g/dL Urine Color Light Yellow Urine Appearance Clear (Clear) Urine pH 6.5 (5.0-8.0) Ur Specific [place] 1.008 (1.001-1.035) Urine Protein Negative (Negative) Urine Glucose (UA) Negative (Negative) Urine Ketones Negative (Negative) Urine Blood Negative (Negative) Urine Nitrite Negative (Negative) Urine Bilirubin Negative (Negative) Urine Urobilinogen <2.0 (<2.0) mg/dL Ur Leukocyte Esterase Negative (Negative) Disposition Clinical Impression: Medication reaction Disposition: HOME SELF-CARE Condition: Stable Instructions (If sedation given, give patient instructions): General Allergic Reaction (ED) Additional Instructions: Please follow-up with primary care physician in the next day or 2 for recheck. Hold your Strattera until follow-up with your doctor. Consider repeat CPK, please have your doctor checked blood work. Return for shaking, weakness, fevers, worsening symptoms or other concerns. Is patient prescribed a controlled substance at d/c from ED?: No Referrals: Thaddeus Longoria MD [Primary Care Provider] - 1-2 days Time of Disposition: 12:32
[2020-05-07 11:03] LABS: Basophils % (A) 1 %; Eosinophils # (A) 0.4 k/uL (0-0.7); Eosinophils % (A) 6 %; HCT 44.9 % (39.0-53.0); HGB 14.7 gm/dL (13.0-17.5); Lymphocytes # (A) 1.6 k/uL (1.0-4.8); Lymphocytes % (A) 22 %; MCH 30.4 pg (25.0-35.0); MCHC 32.8 g/dL (31.0-37.0); MCV 92.6 fL (80.0-100.0); Mean Platelet Volume 6.8; Monocytes # (A) 0.4 k/uL (0-1.0); Monocytes % (A) 6 %; Neutrophils # (A) 4.6 k/uL (1.3-7.7); Neutrophils % (A) 64 %; Platelet Count 301 k/uL (150-450); RBC 4.85 m/uL (4.30-5.90); RDW 12.2 % (11.5-15.5); WBC 7.2 k/uL (3.8-10.6)
[2020-05-07 11:15] LABS: Appearance,Urine Clear (Clear); Bilirubin,Urine Negative (Negative); Blood,Urine Negative (Negative); Color,Urine Light Yellow; Glucose,Urine (UA) Negative (Negative); Ketones,Urine Negative (Negative); Leukocyte Esterase,Urine Negative (Negative); Nitrite,Urine Negative (Negative); PH, Urine 6.5 (5.0-8.0); Protein,Urine Negative (Negative); Specific Gravity,Urine 1.008 (1.001-1.035); Urobilinogen,Urine <2.0 mg/dL (<2.0)
[2020-05-07 12:20] LABS: ALT 44 U/L (4-49); AST 38 U/L (17-59); African American GFR (CKD) >90 (>60 ml/min/1.73 sqM); Albumin 4.1 g/dL (3.5-5.0); Alkaline Phosphatase 65 U/L (38-126); Anion Gap 5 mmol/L; Blood Urea Nitrogen 12 mg/dL (9-20); Calcium 9.3 mg/dL (8.4-10.2); Carbon Dioxide 23 mmol/L (22-30); Chloride 108 mmol/L (98-107); Creatine Kinase 466 U/L (55-170); Glucose 92 mg/dL (74-99); Non-African American GFR(CKD) >90 (>60 ml/min/1.73 sqM); Potassium 4.1 mmol/L (3.5-5.1); Sodium 136 mmol/L (137-145); Total Bilirubin 0.4 mg/dL (0.2-1.3); Total Protein 6.7 g/dL (6.3-8.2)
[2020-05-07 12:58] VITALS: BP 130/69; PULSE 86; RESP 18; TEMP 97.8
== END 2020-05-07 12:59 | disposition home or self-care (01) ==
LOC: EC 10:11
DX: T50.905A Adverse effect of unspecified drugs, medicaments and biological substances, initial encounter (principal); F90.9 Attention-deficit hyperactivity disorder, unspecified type; F17.200 Nicotine dependence, unspecified, uncomplicated; Z79.899 Other long term (current) drug therapy
CPT/HCPCS: 36415; 80053; 81003; 82550; 85025; 96360; 96361; 99283

== ENCOUNTER 2021-02-21 10:43 | Emergency (ER) | payer OTHER ==
[2021-02-21 10:51] VITALS: RESP 18; TEMP 98.2
[2021-02-21] MEDS ORDERED: KETOROLAC 15 MG/ML 1 ML VIAL IVP STA (11:12)
[2021-02-21] MEDS ORDERED: SODIUM CHLORIDE 0.9% 2,000 ML IV STA (11:12)
[2021-02-21] MEDS ORDERED: ONDANSETRON 4 MG/2 ML VIAL IVP STA (11:12)
[2021-02-21] MEDS ORDERED: diphenhydrAMINE 50 MG/ML 1 ML VIAL IVP STA (11:12)
--- NOTE | 2021-02-21 11:38 | ED ---
Abdominal Pain HPI - General Chief Complaint: Abdominal Pain Stated Complaint: Covid symptoms, Abd pain Time Seen by Provider: 02/21/21 10:52 Source: patient, RN notes reviewed Mode of arrival: ambulatory Limitations: no limitations - History of Present Illness Initial Comments: 25-year-old male presents emergency Department with chief complaint of nausea vomiting diarrhea. Patient states started last night states his has some her symptoms started approximate 5 hours it eating dinner. He complains of abdominal cramping. No reported fevers chills chest pain shortness breath headache or dizziness. Patient states he has a at home denies any other known sick contacts from his . - Related Data Home Medications Medication Instructions Recorded Confirmed Albuterol Sulfate [Ventolin HFA] 1 - 2 puff INHALATION RT-Q6H PRN 05/07/20 05/07/20 Atomoxetine HCl [Strattera] 60 mg PO DAILY 05/07/20 05/07/20 Ibuprofen [Motrin Ib] 600 mg PO Q8H PRN 05/07/20 05/07/20 Previous Rx's Medication Instructions Recorded Ondansetron Odt [Zofran Odt] 4 mg PO Q8HR PRN #10 tab 02/21/21 Allergies Allergy/AdvReac Type Severity Reaction Status Date / Time No Known Allergies Allergy Verified 02/21/21 10:48 Review of Systems ROS Statement: Those systems with pertinent positive or pertinent negative responses have been documented in the HPI. ROS Other: All systems not noted in ROS Statement are negative. Past Medical History Past Medical History: No Reported History Additional Past Medical History / Comment(s): foot broken, cut left pinky finger. History of Any Multi-Drug Resistant Organisms: None Reported Past Surgical History: Adenoidectomy, Tonsillectomy Additional Past Surgical History / Comment(s): testicular sx. Past Anesthesia/Blood Transfusion Reactions: No Reported Reaction Past Psychological History: ADD/ADHD, Anxiety, Bipolar, Depression Smoking Status: Current every day smoker Past Alcohol Use History: Rare Past Drug Use History: None Reported - Past Family History Mother Additional Family Medical History / Comment(s): Mother is alive at age 44 with history of bipolar, seizures, migaines. Father Additional Family Medical History / Comment(s): Patient does not know anything about his father. Sister(s) Additional Family Medical History / Comment(s): Patient has 2 sisters ages 22 and 21 with no major medical problems. Patient has 1 brother that he does not know. He does not have any children. General Exam Limitations: no limitations General appearance: alert, in no apparent distress Head exam: Present: atraumatic, normocephalic, normal inspection Eye exam: Present: normal appearance, PERRL, EOMI. Absent: scleral icterus, conjunctival injection, periorbital swelling ENT exam: Present: normal exam, normal oropharynx, mucous membranes moist Neck exam: Present: normal inspection, full ROM. Absent: tenderness, lymphadenopathy Respiratory exam: Present: normal lung sounds bilaterally. Absent: respiratory distress, wheezes, rales, rhonchi, stridor Cardiovascular Exam: Present: regular rate, normal rhythm, normal heart sounds. Absent: systolic murmur, diastolic murmur, rubs, gallop, clicks GI/Abdominal exam: Present: soft, tenderness, normal bowel sounds. Absent: distended, guarding, rebound, rigid Back exam: Absent: CVA tenderness (R), CVA tenderness (L) Neurological exam: Present: alert Skin exam: Present: warm, dry, intact, normal color. Absent: rash Course Vital Signs 02/21/21 10:45 Temperature 98.2 F Pulse Rate 93 Respiratory 18 Rate Blood Pressure 98/62 O2 Sat by Pulse 100 Oximetry Medical Decision Making - Medical Decision Making 25-year-old male presented for nausea vomiting diarrhea patient's workup was negative she he was well hydrated, given antiemetics symptoms are improving. Patient has gastroenteritis. Patient discharged in stable condition - Lab Data Result diagrams: 02/21/21 11:22 02/21/21 11:22 Lab Results 02/21/21 02/21/21 02/21/21 Range/Units 10:59 11:22 11:22 WBC 13.6 H (3.8-10.6) k/uL RBC 5.44 (4.30-5.90) m/uL Hgb 17.8 H (13.0-17.5) gm/dL Hct 50.1 (39.0-53.0) % MCV 92.1 (80.0-100.0) fL MCH 32.7 (25.0-35.0) pg MCHC 35.5 (31.0-37.0) g/dL RDW 11.8 (11.5-15.5) % Plt Count 253 (150-450) k/uL MPV 6.9 Neutrophils % 90 % Lymphocytes % 4 % Monocytes % 5 % Eosinophils % 1 % Basophils % 0 % Neutrophils # 12.1 H (1.3-7.7) k/uL Lymphocytes # 0.5 L (1.0-4.8) k/uL Monocytes # 0.7 (0-1.0) k/uL Eosinophils # 0.1 (0-0.7) k/uL Basophils # 0.0 (0-0.2) k/uL Sodium (137-145) mmol/L Potassium (3.5-5.1) mmol/L Chloride (98-107) mmol/L Carbon Dioxide (22-30) mmol/L Anion Gap mmol/L BUN (9-20) mg/dL Creatinine (0.66-1.25) mg/dL Est GFR (CKD-EPI)AfAm (>60 ml/min/1.73 sqM) Est GFR (CKD-EPI)NonAf (>60 ml/min/1.73 sqM) Glucose (74-99) mg/dL Plasma Lactic Acid [place] (0.7-2.0) mmol/L Calcium (8.4-10.2) mg/dL Total Bilirubin (0.2-1.3) mg/dL AST (17-59) U/L ALT (4-49) U/L Alkaline Phosphatase (38-126) U/L Total Protein (6.3-8.2) g/dL Albumin (3.5-5.0) g/dL Amylase (30-110) U/L Lipase (23-300) U/L Urine Color Yellow Urine Appearance Clear (Clear) Urine pH 5.5 (5.0-8.0) Ur Specific [place] 1.034 (1.001-1.035) Urine Protein Trace H (Negative) Urine Glucose (UA) Negative (Negative) Urine Ketones Negative (Negative) Urine Blood Negative (Negative) Urine Nitrite Negative (Negative) Urine Bilirubin Negative (Negative) Urine Urobilinogen <2.0 (<2.0) mg/dL Ur Leukocyte Esterase Negative (Negative) Coronavirus (PCR) Not Detected (Not Detectd) 02/21/21 02/21/21 Range/Units 11:22 11:22 WBC (3.8-10.6) k/uL RBC (4.30-5.90) m/uL Hgb (13.0-17.5) gm/dL Hct (39.0-53.0) % MCV (80.0-100.0) fL MCH (25.0-35.0) pg MCHC (31.0-37.0) g/dL RDW (11.5-15.5) % Plt Count (150-450) k/uL MPV Neutrophils % % Lymphocytes % % Monocytes % % Eosinophils % % Basophils % % Neutrophils # (1.3-7.7) k/uL Lymphocytes # (1.0-4.8) k/uL Monocytes # (0-1.0) k/uL Eosinophils # (0-0.7) k/uL Basophils # (0-0.2) k/uL Sodium 139 (137-145) mmol/L Potassium 4.9 (3.5-5.1) mmol/L Chloride 106 (98-107) mmol/L Carbon Dioxide 22 (22-30) mmol/L Anion Gap 11 mmol/L BUN 27 H (9-20) mg/dL Creatinine 0.86 (0.66-1.25) mg/dL Est GFR (CKD-EPI)AfAm >90 (>60 ml/min/1.73 sqM) Est GFR (CKD-EPI)NonAf >90 (>60 ml/min/1.73 sqM) Glucose 107 H (74-99) mg/dL Plasma Lactic Acid [place] 1.7 (0.7-2.0) mmol/L Calcium 9.8 (8.4-10.2) mg/dL Total Bilirubin 0.7 (0.2-1.3) mg/dL AST 43 (17-59) U/L ALT 59 H (4-49) U/L Alkaline Phosphatase 75 (38-126) U/L Total Protein 7.9 (6.3-8.2) g/dL Albumin 4.9 (3.5-5.0) g/dL Amylase 46 (30-110) U/L Lipase 104 (23-300) U/L Urine Color Urine Appearance (Clear) Urine pH (5.0-8.0) Ur Specific [place] (1.001-1.035) Urine Protein (Negative) Urine Glucose (UA) (Negative) Urine Ketones (Negative) Urine Blood (Negative) Urine Nitrite (Negative) Urine Bilirubin (Negative) Urine Urobilinogen (<2.0) mg/dL Ur Leukocyte Esterase (Negative) Coronavirus (PCR) (Not Detectd) Disposition Clinical Impression: Gastroenteritis Disposition: HOME SELF-CARE Condition: Stable Instructions (If sedation given, give patient instructions): Gastroenteritis (ED) Additional Instructions: Please return to the Emergency Department if symptoms worsen or any other concerns. Prescriptions: Ondansetron Odt [Zofran Odt] 4 mg PO Q8HR PRN #10 tab PRN Reason: Nausea Is patient prescribed a controlled substance at d/c from ED?: No Referrals: Thaddeus Longoria MD [Primary Care Provider] - 1-2 days Time of Disposition: 12:58
[2021-02-21 12:04] LABS: Appearance,Urine Clear (Clear); Bilirubin,Urine Negative (Negative); Blood,Urine Negative (Negative); Color,Urine Yellow; Glucose,Urine (UA) Negative (Negative); Ketones,Urine Negative (Negative); Leukocyte Esterase,Urine Negative (Negative); Nitrite,Urine Negative (Negative); PH, Urine 5.5 (5.0-8.0); Protein,Urine Trace (Negative); Specific Gravity,Urine 1.034 (1.001-1.035); Urobilinogen,Urine <2.0 mg/dL (<2.0)
[2021-02-21 12:12] LABS: ALT 59 U/L (4-49); AST 43 U/L (17-59); African American GFR (CKD) >90 (>60 ml/min/1.73 sqM); Albumin 4.9 g/dL (3.5-5.0); Alkaline Phosphatase 75 U/L (38-126); Amylase 46 U/L (30-110); Anion Gap 11 mmol/L; Blood Urea Nitrogen 27 mg/dL (9-20); Calcium 9.8 mg/dL (8.4-10.2); Carbon Dioxide 22 mmol/L (22-30); Chloride 106 mmol/L (98-107); Glucose 107 mg/dL (74-99); Lipase 104 U/L (23-300); Non-African American GFR(CKD) >90 (>60 ml/min/1.73 sqM); Potassium 4.9 mmol/L (3.5-5.1); Sodium 139 mmol/L (137-145); Total Bilirubin 0.7 mg/dL (0.2-1.3); Total Protein 7.9 g/dL (6.3-8.2)
[2021-02-21 12:35] LABS: Basophils % (A) 0 %; Eosinophils # (A) 0.1 k/uL (0-0.7); Eosinophils % (A) 1 %; HCT 50.1 % (39.0-53.0); HGB 17.8 gm/dL (13.0-17.5); Lymphocytes # (A) 0.5 k/uL (1.0-4.8); Lymphocytes % (A) 4 %; MCH 32.7 pg (25.0-35.0); MCHC 35.5 g/dL (31.0-37.0); MCV 92.1 fL (80.0-100.0); Mean Platelet Volume 6.9; Monocytes # (A) 0.7 k/uL (0-1.0); Monocytes % (A) 5 %; Neutrophils # (A) 12.1 k/uL (1.3-7.7); Neutrophils % (A) 90 %; Platelet Count 253 k/uL (150-450); RBC 5.44 m/uL (4.30-5.90); RDW 11.8 % (11.5-15.5); WBC 13.6 k/uL (3.8-10.6)
[2021-02-21 13:21] VITALS: BP 118/85; PULSE 84
== END 2021-02-21 13:21 | disposition home or self-care (01) ==
LOC: EC 10:43
DX: K52.9 Noninfective gastroenteritis and colitis, unspecified (principal); F41.9 Anxiety disorder, unspecified; F32.9 Major depressive disorder, single episode, unspecified; F90.9 Attention-deficit hyperactivity disorder, unspecified type; F17.200 Nicotine dependence, unspecified, uncomplicated; Z20.822 Contact with and (suspected) exposure to COVID-19
CPT/HCPCS: 36415; 80053; 82150; 83605; 83690; 85025; 81003; 87635; 99284; 96374; 96375 ×2; 96361; J1200; J2405; J1885

== ENCOUNTER 2021-06-06 17:39 | Emergency (ER) | payer OTHER ==
[2021-06-06 17:47] VITALS: BP 138/54; PULSE 82; RESP 18; TEMP 98
[2021-06-06] MEDS ORDERED: methylPREDNISolone SOD SUCCI 125 MG/2 ML VIAL IM ONE (18:01)
--- NOTE | 2021-06-06 18:14 | ED ---
Skin/Abscess/FB HPI - General Chief complaint: Skin/Abscess/Foreign Body Stated complaint: poision gennaro Time Seen by Provider: 06/06/21 17:53 Source: patient, RN notes reviewed Mode of arrival: ambulatory Limitations: no limitations - History of Present Illness Initial comments: Patient is a 26-year-old male that presents to emergency department with a itchy rash covering his bilateral upper extremities trunk and his legs. 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 He notes that it comes and goes for the past several months that is very itchy. He notes that he wanted to get looked at. Patient denied other symptoms or complaints. He was otherwise a well-appearing 26-year-old male in no apparent distress or pain. He denied any chest pain shortness breath headache nausea vomiting diarrhea constipation fever fatigue chills. - Related Data Home Medications Medication Instructions Recorded Confirmed Albuterol Sulfate [Ventolin HFA] 1 - 2 puff INHALATION RT-Q6H PRN 05/07/20 05/07/20 Atomoxetine HCl [Strattera] 60 mg PO DAILY 05/07/20 05/07/20 Ibuprofen [Motrin Ib] 600 mg PO Q8H PRN 05/07/20 05/07/20 Previous Rx's Medication Instructions Recorded Ondansetron Odt [Zofran Odt] 4 mg PO Q8HR PRN #10 tab 02/21/21 Allergies Allergy/AdvReac Type Severity Reaction Status Date / Time No Known Allergies Allergy Verified 06/06/21 17:47 Review of Systems ROS Statement: Those systems with pertinent positive or pertinent negative responses have been documented in the HPI. ROS Other: All systems not noted in ROS Statement are negative. Past Medical History Past Medical History: No Reported History Additional Past Medical History / Comment(s): foot broken, cut left pinky finger. History of Any Multi-Drug Resistant Organisms: None Reported Past Surgical History: Adenoidectomy, Tonsillectomy Additional Past Surgical History / Comment(s): testicular sx. Past Anesthesia/Blood Transfusion Reactions: No Reported Reaction Past Psychological History: ADD/ADHD, Anxiety, Bipolar, Depression Smoking Status: Current every day smoker Past Alcohol Use History: Rare Past Drug Use History: None Reported - Past Family History Mother Additional Family Medical History / Comment(s): Mother is alive at age 44 with history of bipolar, seizures, migaines. Father Additional Family Medical History / Comment(s): Patient does not know anything about his father. Sister(s) Additional Family Medical History / Comment(s): Patient has 2 sisters ages 22 and 21 with no major medical problems. Patient has 1 brother that he does not know. He does not have any children. General Exam Limitations: no limitations General appearance: alert, in no apparent distress Head exam: Present: atraumatic, normocephalic, normal inspection Eye exam: Present: normal appearance, PERRL, EOMI. Absent: scleral icterus, conjunctival injection, periorbital swelling Neck exam: Present: normal inspection Respiratory exam: Present: normal lung sounds bilaterally. Absent: respiratory distress, wheezes, rales, rhonchi, stridor Cardiovascular Exam: Present: regular rate, normal rhythm, normal heart sounds. Absent: systolic murmur, diastolic murmur, rubs, gallop, clicks Extremities exam: Present: normal inspection, full ROM, normal capillary refill. Absent: tenderness, pedal edema, joint swelling, calf tenderness Neurological exam: Present: alert, oriented X3 Psychiatric exam: Present: normal affect, normal mood Skin exam: Present: warm, dry, intact, normal color, rash (Bilateral upper extremities more at the wrists and forearms, the trunk, upper bilateral lower extremities. No tunneling noted) Course Vital Signs 06/06/21 17:44 Temperature 98 F Pulse Rate 82 Respiratory 18 Rate Blood Pressure 138/54 O2 Sat by Pulse 100 Oximetry Medical Decision Making - Medical Decision Making 26-year-old male complaining of a itchy rash on his bilateral upper extremities trunk and his legs. Given patient's clinical signs symptoms and work history is most likely a contact dermatitis with environmental substances. 125 mg of Solu-Medrol ordered. Case discussed with Dr. Fernandez, patient can discharge home with conservative management using [id number] steroid cream. Disposition Clinical Impression: Contact dermatitis Disposition: HOME SELF-CARE Condition: Stable Instructions (If sedation given, give patient instructions): Contact Dermatitis (ED) Additional Instructions: Please return to the Emergency Department if symptoms worsen or any other concerns. Follow-up primary care as needed. Use steroid cream as directed on the package. Is patient prescribed a controlled substance at d/c from ED?: No Referrals: Thaddeus Longoria MD [Primary Care Provider] - 1-2 days Time of Disposition: 18:14
== END 2021-06-06 18:52 | disposition home or self-care (01) ==
LOC: EC 17:39
DX: L25.9 Unspecified contact dermatitis, unspecified cause (principal); F17.200 Nicotine dependence, unspecified, uncomplicated
CPT/HCPCS: 96372; 99282; J2930

== ENCOUNTER 2021-08-04 06:30 | Emergency (ER) | payer OTHER ==
[2021-08-04 06:38] VITALS: BP 119/72; PULSE 110; RESP 18; TEMP 102
[2021-08-04] MEDS ORDERED: IBUPROFEN 800 MG TAB PO STA (06:41)
[2021-08-04] MEDS ORDERED: ACETAMINOPHEN TAB 500 MG TAB PO STA (06:41)
--- NOTE | 2021-08-04 07:05 | XR ---
EXAMINATION TYPE: XR chest 2V DATE OF EXAM: 08/04/2021 COMPARISON: 11/12/2019 HISTORY: Cough TECHNIQUE: 2 views FINDINGS: Heart and mediastinum are normal. Lungs are clear. Diaphragm is normal. Bony thorax is inta ct. IMPRESSION: Normal chest. No change
--- NOTE | 2021-08-04 07:06 | ED ---
General Adult HPI - General Source: patient, RN notes reviewed Mode of arrival: ambulatory Limitations: no limitations <Shivam Antunez - Last Filed: 08/04/21 08:11> <Codi Sullivan - Last Filed: 08/15/21 13:39> - General Chief complaint: Upper Respiratory Infection Stated complaint: Fever Time Seen by Provider: 08/04/21 06:40 - History of Present Illness Initial comments: 26-year-old male presents to the emergency room for a chief complaint of covid symptoms. Patient states he has had symptoms for 2 weeks now. States this started with a sore throat cough and congestion. Patient states several days ago he lost his sense of taste and smell. He has had body aches and fevers. Denies shortness of breath. Denies chest pain. Patient is not vaccinated Patient has no other complaints at this time including shortness of breath, chest pain, abdominal pain, nausea or vomiting, headache, or visual changes. (Shivam Antunez) - Related Data Home Medications Medication Instructions Recorded Confirmed Ibuprofen [Motrin Ib] 400 mg PO Q8H PRN 05/07/20 08/04/21 D-Methorphan/PE/Acetaminophen 2 cap PO Q6H PRN 08/04/21 08/04/21 [Vicks Dayquil Liquicaps] Previous Rx's Medication Instructions Recorded Benzonatate [Tessalon Perles] 200 mg PO Q8H PRN #15 capsule 08/04/21 guaiFENesin [Mucinex] 600 mg PO Q12HR PRN #20 tab 08/04/21 Allergies Allergy/AdvReac Type Severity Reaction Status Date / Time No Known Allergies Allergy Verified 08/04/21 08:35 Review of Systems ROS Other: All systems not noted in ROS Statement are negative. <Shivam Antunez - Last Filed: 08/04/21 08:11> ROS Other: All systems not noted in ROS Statement are negative. <Codi Sullivan - Last Filed: 08/15/21 13:39> ROS Statement: Those systems with pertinent positive or pertinent negative responses have been documented in the HPI. Past Medical History Past Medical History: No Reported History Additional Past Medical History / Comment(s): foot broken, cut left pinky finger. History of Any Multi-Drug Resistant Organisms: None Reported Past Surgical History: Adenoidectomy, Tonsillectomy Additional Past Surgical History / Comment(s): testicular sx. Past Anesthesia/Blood Transfusion Reactions: No Reported Reaction Past Psychological History: ADD/ADHD, Anxiety, Bipolar, Depression Smoking Status: Current every day smoker Past Alcohol Use History: Rare Past Drug Use History: None Reported - Past Family History Mother Additional Family Medical History / Comment(s): Mother is alive at age 44 with history of bipolar, seizures, migaines. Father Additional Family Medical History / Comment(s): Patient does not know anything about his father. Sister(s) Additional Family Medical History / Comment(s): Patient has 2 sisters ages 22 and 21 with no major medical problems. Patient has 1 brother that he does not know. He does not have any children. <Shivam Antunez - Last Filed: 08/04/21 08:11> General Exam Limitations: no limitations General appearance: alert Head exam: Present: atraumatic Eye exam: Present: normal appearance, PERRL, EOMI. Absent: scleral icterus, conjunctival injection ENT exam: Present: normal exam, mucous membranes moist Neck exam: Present: normal inspection, full ROM. Absent: tenderness Respiratory exam: Present: normal lung sounds bilaterally. Absent: respiratory distress, wheezes Cardiovascular Exam: Present: regular rate, normal rhythm, normal heart sounds Neurological exam: Present: alert <Shivam Antunez - Last Filed: 08/04/21 08:11> Course Vital Signs 08/04/21 06:34 Temperature 102 F H Pulse Rate 110 H Respiratory 18 Rate Blood Pressure 119/72 O2 Sat by Pulse 98 Oximetry Medical Decision Making <Shivam Antunez - Last Filed: 08/04/21 08:11> <Codi Sullivan - Last Filed: 08/15/21 13:39> - Medical Decision Making Vitals are stable. Patient is well appearing. No respiratory distress. Patient did test positive for Crohn virus. Chest x-ray shows no acute process. Patient has had symptoms since July 23 him out of the window for interbody fusion by over 3 days. Therefore he does not qualify. Chest x-ray does not show any evidence of pneumonia. At this time patient can be discharged home to follow up with primary care with symptomatic treatment. He is advised to return for any worsening symptoms or shortness of breath. (Shivam Antunez) I was available for consultation in the emergency department. The history and physical exam were done by the midlevel provider. I was consulted for this patients care. I reviewed the case with the midlevel provider and based on their presentation of the patient, I agree with the assessment, medical decision making and plan of care as documented. Chart was dictated using [employer] dictation software. Attempts were made to correct any dictation errors however some typographical errors may persist. (Codi Sullivan) - Lab Data Lab Results 08/04/21 Range/Units 07:12 Coronavirus (PCR) Detected A (Not Detectd) Disposition Is patient prescribed a controlled substance at d/c from ED?: No Time of Disposition: 08:08 <Shivam Antunez - Last Filed: 08/04/21 08:11> <Codi Sullivan - Last Filed: 08/15/21 13:39> Clinical Impression: COVID-19 Disposition: HOME SELF-CARE Condition: Fair Instructions (If sedation given, give patient instructions): Coronavirus Disease 2019 (COVID-19) Additional Instructions: Please alternate Motrin and Tylenol for pain and fever up to every 3 hours. Take vitamins C, D, and zinc over the counter. Take prescription medications as directed. Follow-up with your doctor. Return to the emergency room for any worsening symptoms. Prescriptions: guaiFENesin [Mucinex] 600 mg PO Q12HR PRN #20 tab PRN Reason: Congestion Benzonatate [Tessalon Perles] 200 mg PO Q8H PRN #15 capsule PRN Reason: Cough Referrals: Thaddeus Longoria MD [Primary Care Provider] - 1-2 days
== END 2021-08-04 08:45 | disposition home or self-care (01) ==
LOC: EC 06:30
DX: U07.1 COVID-19 (principal); F17.200 Nicotine dependence, unspecified, uncomplicated
CPT/HCPCS: 71046; 87635; 99283

== ENCOUNTER 2022-08-22 06:41 | Emergency (ER) | payer OTHER ==
[2022-08-22 06:46] VITALS: TEMP 97.5
[2022-08-22] MEDS ORDERED: PROPARACAINE 0.5% OPHTH DROPS 15 ML BTL RIGHT EYE STA (06:53)
[2022-08-22] MEDS ORDERED: FLUORESCEIN STRIPS 1 MG STRIP RIGHT EYE ONE (06:54)
[2022-08-22] MEDS ORDERED: TOBRAMYCIN 0.3% OPHTH DROPS 5 ML BTL RIGHT EYE STA (07:09)
--- NOTE | 2022-08-22 07:11 | ED ---
Eye Problem HPI - General Chief complaint: Eye Problems Stated complaint: RT eye irritation Time Seen by Provider: 08/22/22 06:46 Source: patient, RN notes reviewed Mode of arrival: ambulatory Limitations: no limitations - History of Present Illness Initial comments: Patient is a 27 year old male presenting to the ER with a complaint of right eye drainage/irritation. Patient reports he started feeling discomfort on 08/19/22. 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 Two days ago, the patient reports feeling a gritty feeling in his right eye. He noticed a scratch on the outside of his eye and soon after his eye swelled up. Patient has tried rinsing his eye out with water with no relief. He denies any known incident of getting something in his eye and denies contact lens use. - Related Data Home Medications Medication Instructions Recorded Confirmed Ibuprofen [Motrin Ib] 400 mg PO Q8H PRN 05/07/20 08/04/21 D-Methorphan/PE/Acetaminophen 2 cap PO Q6H PRN 08/04/21 08/04/21 [Vicks Dayquil Liquicaps] Previous Rx's Medication Instructions Recorded Benzonatate [Tessalon Perles] 200 mg PO Q8H PRN #15 capsule 08/04/21 guaiFENesin [Mucinex] 600 mg PO Q12HR PRN #20 tab 08/04/21 Allergies Allergy/AdvReac Type Severity Reaction Status Date / Time No Known Allergies Allergy Verified 08/22/22 06:43 Review of Systems ROS Statement: Those systems with pertinent positive or pertinent negative responses have been documented in the HPI. ROS Other: All systems not noted in ROS Statement are negative. Past Medical History Past Medical History: No Reported History Additional Past Medical History / Comment(s): foot broken, cut left pinky finger. History of Any Multi-Drug Resistant Organisms: None Reported Past Surgical History: Adenoidectomy, Tonsillectomy Additional Past Surgical History / Comment(s): testicular sx. Past Anesthesia/Blood Transfusion Reactions: No Reported Reaction Past Psychological History: ADD/ADHD, Anxiety, Bipolar, Depression Smoking Status: Current every day smoker Past Alcohol Use History: Rare Past Drug Use History: None Reported - Past Family History Mother Additional Family Medical History / Comment(s): Mother is alive at age 44 with history of bipolar, seizures, migaines. Father Additional Family Medical History / Comment(s): Patient does not know anything about his father. Sister(s) Additional Family Medical History / Comment(s): Patient has 2 sisters ages 22 and 21 with no major medical problems. Patient has 1 brother that he does not know. He does not have any children. General Exam Limitations: no limitations Eye exam: Present: PERRL, EOMI, periorbital swelling, other (conjuctival erythema and injection, yellow drainage noted ) Pupils: Present: normal accommodation Course Vital Signs 08/22/22 06:43 Temperature 97.5 F L Pulse Rate 65 Respiratory 16 Rate Blood Pressure 136/85 O2 Sat by Pulse 98 Oximetry Medical Decision Making - Medical Decision Making 27-year-old presented for right eye irritation. Patient has conjunctivitis. There is no foreign body. Patient does have mild scleral irritation, patient was started on Tobrex eyedrops patient discharged in stable condition return parameters were discussed. Disposition Clinical Impression: Conjunctivitis, right eye Disposition: HOME SELF-CARE Condition: Stable Instructions (If sedation given, give patient instructions): Conjunctivitis (ED) Additional Instructions: Use Tobrex eyedrops every 4 hours for 7 days.Please return to the Emergency Department if symptoms worsen or any other concerns. Is patient prescribed a controlled substance at d/c from ED?: No Referrals: Thaddeus Longoria MD [Primary Care Provider] - 1-2 days Tiffanie Gutierrez MD [STAFF PHYSICIAN] - 1-2 days Time of Disposition: 07:15
[2022-08-22 08:21] VITALS: BP 128/88; PULSE 71; RESP 15
== END 2022-08-22 08:21 | disposition home or self-care (01) ==
LOC: EC 06:41
DX: H10.31 Unspecified acute conjunctivitis, right eye (principal); F41.9 Anxiety disorder, unspecified; F31.9 Bipolar disorder, unspecified; F17.200 Nicotine dependence, unspecified, uncomplicated; Z79.899 Other long term (current) drug therapy
CPT/HCPCS: 99283

== ENCOUNTER 2022-09-10 12:49 | Emergency (ER) | payer OTHER ==
[2022-09-10] MEDS ORDERED: ACETAMINOPHEN TAB 500 MG TAB PO STA (13:09)
[2022-09-10] MEDS ORDERED: IBUPROFEN 600 MG TAB PO STA (13:09)
--- NOTE | 2022-09-10 13:37 | ED ---
Fever HPI - General Chief Complaint: Fever Stated Complaint: nausea, body aches Time Seen by Provider: 09/10/22 13:31 Source: patient, RN notes reviewed Mode of arrival: ambulatory Limitations: no limitations - History of Present Illness Initial Comments: 27-year-old male presents emergency from chief complaint of fever chills cough and body aches. Patient symptoms started yesterday. Patient recently traveled back from for her. Patient states that he believes he came in contact with Covid. Patient denies any blurred vision no significant past medical history no recent Tylenol Motrin. No nausea vomiting diarrhea constipation. - Related Data Home Medications Medication Instructions Recorded Confirmed Ibuprofen [Motrin Ib] 400 mg PO Q8H PRN 05/07/20 08/04/21 D-Methorphan/PE/Acetaminophen 2 cap PO Q6H PRN 08/04/21 08/04/21 [Vicks Dayquil Liquicaps] Previous Rx's Medication Instructions Recorded Benzonatate [Tessalon Perles] 200 mg PO Q8H PRN #15 capsule 08/04/21 guaiFENesin [Mucinex] 600 mg PO Q12HR PRN #20 tab 08/04/21 Oseltamivir [Tamiflu] 75 mg PO Q12HR #10 cap 09/10/22 Allergies Allergy/AdvReac Type Severity Reaction Status Date / Time No Known Allergies Allergy Verified 09/10/22 13:04 Review of Systems ROS Statement: Those systems with pertinent positive or pertinent negative responses have been documented in the HPI. ROS Other: All systems not noted in ROS Statement are negative. Past Medical History Past Medical History: No Reported History Additional Past Medical History / Comment(s): foot broken, cut left pinky finger. History of Any Multi-Drug Resistant Organisms: None Reported Past Surgical History: Adenoidectomy, Tonsillectomy Additional Past Surgical History / Comment(s): testicular sx. Past Anesthesia/Blood Transfusion Reactions: No Reported Reaction Past Psychological History: ADD/ADHD, Anxiety, Bipolar, Depression Smoking Status: Current every day smoker Past Alcohol Use History: Rare Past Drug Use History: None Reported - Past Family History Mother Additional Family Medical History / Comment(s): Mother is alive at age 44 with history of bipolar, seizures, migaines. Father Additional Family Medical History / Comment(s): Patient does not know anything about his father. Sister(s) Additional Family Medical History / Comment(s): Patient has 2 sisters ages 22 and 21 with no major medical problems. Patient has 1 brother that he does not know. He does not have any children. General Exam Limitations: no limitations General appearance: alert, in no apparent distress Head exam: Present: atraumatic, normocephalic, normal inspection Eye exam: Present: normal appearance, PERRL, EOMI. Absent: scleral icterus, conjunctival injection, periorbital swelling ENT exam: Present: normal exam, normal oropharynx, mucous membranes moist Neck exam: Present: normal inspection, full ROM. Absent: tenderness, meningismus, lymphadenopathy Respiratory exam: Present: normal lung sounds bilaterally. Absent: respiratory distress, wheezes, rales, rhonchi, stridor Cardiovascular Exam: Present: regular rate, normal rhythm, normal heart sounds. Absent: systolic murmur, diastolic murmur, rubs, gallop, clicks GI/Abdominal exam: Present: soft, normal bowel sounds. Absent: distended, tenderness, guarding, rebound, rigid Course Vital Signs 09/10/22 09/10/22 13:02 13:45 Temperature 101.5 F H 100.9 F H Pulse Rate 93 89 Respiratory 22 18 Rate Blood Pressure 110/64 124/68 O2 Sat by Pulse 97 99 Oximetry Medical Decision Making - Medical Decision Making Patient is influenza A positive. Patient discharged in stable condition patient provided Tamiflu. Patient instructed continue Tylenol Motrin return parameters discussed. - Lab Data Lab Results 09/10/22 09/10/22 Range/Units 13:07 13:07 Coronavirus (PCR) Not Detected (Not Detectd) Influenza Type A RNA Detected H (Not Detectd) Influenza Type B (PCR) Not Detected (Not Detectd) Disposition Clinical Impression: Influenza Disposition: HOME SELF-CARE Condition: Stable Instructions (If sedation given, give patient instructions): Influenza (ED) Additional Instructions: Please return to the Emergency Department if symptoms worsen or any other concerns. Prescriptions: Oseltamivir [Tamiflu] 75 mg PO Q12HR #10 cap Is patient prescribed a controlled substance at d/c from ED?: No Referrals: Thaddeus Longoria MD [Primary Care Provider] - 1-2 days Time of Disposition: 13:37
[2022-09-10 13:46] VITALS: BP 124/68; PULSE 89; RESP 18; TEMP 100.9
== END 2022-09-10 13:46 | disposition home or self-care (01) ==
LOC: EC 12:49
DX: J10.1 Influenza due to other identified influenza virus with other respiratory manifestations (principal); F41.9 Anxiety disorder, unspecified; F31.9 Bipolar disorder, unspecified; F17.200 Nicotine dependence, unspecified, uncomplicated; Z20.822 Contact with and (suspected) exposure to COVID-19
CPT/HCPCS: 87502; 87635; 99283

== ENCOUNTER 2022-10-05 15:00 | Emergency (ER) | payer OTHER ==
--- NOTE | 2022-10-05 16:54 | ED ---
General Adult HPI - General Chief complaint: Upper Respiratory Infection Stated complaint: dizziness Time Seen by Provider: 10/05/22 16:10 Source: patient, RN notes reviewed Mode of arrival: ambulatory Limitations: no limitations - History of Present Illness Initial comments: Patient is a 27-year-old of presenting to the emergency room with complaints of body aches, headache, generalized weakness, fevers, chills, congestion, dizziness and ear pressure for a couple of days. He reports taking [id number] Tylenol and ibuprofen without any significant improvement. He denies any abdominal pain, nausea, vomiting, diarrhea, palpitations, lethargy. He is not vaccinated for COVID or influenza. He is a current smoker. He has no significant past medical history and does not take any medications on a regular basis. - Related Data Home Medications Medication Instructions Recorded Confirmed Ibuprofen [Motrin Ib] 400 mg PO Q8H PRN 05/07/20 08/04/21 D-Methorphan/PE/Acetaminophen 2 cap PO Q6H PRN 08/04/21 08/04/21 [Vicks Dayquil Liquicaps] Previous Rx's Medication Instructions Recorded Benzonatate [Tessalon Perles] 200 mg PO Q8H PRN #15 capsule 08/04/21 guaiFENesin [Mucinex] 600 mg PO Q12HR PRN #20 tab 08/04/21 Oseltamivir [Tamiflu] 75 mg PO Q12HR #10 cap 09/10/22 Allergies Allergy/AdvReac Type Severity Reaction Status Date / Time No Known Allergies Allergy Verified 09/10/22 13:04 Review of Systems ROS Statement: Those systems with pertinent positive or pertinent negative responses have been documented in the HPI. ROS Other: All systems not noted in ROS Statement are negative. Past Medical History Past Medical History: No Reported History (He has no significant past) Additional Past Medical History / Comment(s): foot broken, cut left pinky finger. History of Any Multi-Drug Resistant Organisms: None Reported Past Surgical History: Adenoidectomy, Tonsillectomy Additional Past Surgical History / Comment(s): testicular sx. Past Anesthesia/Blood Transfusion Reactions: No Reported Reaction Past Psychological History: ADD/ADHD, Anxiety, Bipolar, Depression Smoking Status: Current every day smoker Past Alcohol Use History: Rare Past Drug Use History: None Reported - Past Family History Mother Additional Family Medical History / Comment(s): Mother is alive at age 44 with history of bipolar, seizures, migaines. Father Additional Family Medical History / Comment(s): Patient does not know anything about his father. Sister(s) Additional Family Medical History / Comment(s): Patient has 2 sisters ages 22 and 21 with no major medical problems. Patient has 1 brother that he does not know. He does not have any children. General Exam - General Exam Comments Initial Comments: GENERAL: No acute distress, well developed, well nourished. HEENT: Normocephalic, atraumatic. Pupils equal, round, reactive to light. Moist mucous membranes. Bilateral serous effusions without perforation or erythema. LUNGS: No respiratory distress. Clear to auscultation, no adventitious sounds, no use of accessory muscles. HEART: Regular rate and rhythm without murmur, rub, or gallop. ABDOMEN: Normal bowel sounds. Soft, non-tender, non-distended. BACK: Normal inspection. EXTREMITIES: No edema. No tenderness. Moves all extremities. NEUROLOGIC: Alert & oriented x 3. CN II-XII grossly intact. PSYCHIATRIC: Normal affect and behavior. DERMATOLOGIC: Skin intact, without rashes or lesions noted. Limitations: no limitations Course Vital Signs 10/05/22 10/05/22 15:17 17:12 Temperature 99.7 F H 101.8 F H Pulse Rate 118 H 101 H Respiratory 20 18 Rate Blood Pressure 114/77 131/81 O2 Sat by Pulse 98 98 Oximetry Medical Decision Making - Medical Decision Making 27-year-old male presenting to the emergency room with complaints of ear pain cough congestion, body aches, fevers, chills, headache and dizziness ongoing for a few days without significant improvement. No indication for diagnostic imaging is no evidence of respiratory distress or hypoxia. Will obtain swabs for COVID flu and RSV is likely viral. Bilateral otitis media serous noted. Swab positive for COVID, and negative for influenza or RSV. No indication for further laboratory studies. Education regarding symptomatic management for both serous otitis media and Covid reviewed at length. Return parameters to the emergency room reviewed with patient. Discussed indications for Paxilovid, offered and declined. Will discharge home in stable condition with symptomatic management while quarantining. Case discussed with Dr. Arteaga. - Lab Data Lab Results 10/05/22 Range/Units 15:27 Influenza Type A (PCR) Not Detected (Not Detectd) Influenza Type B (PCR) Not Detected (Not Detectd) RSV (PCR) Not Detected (Not Detectd) SARS-CoV-2 (PCR) Detected A (Not Detectd) Disposition Clinical Impression: COVID-19, BSOM (bilateral serous otitis media) Disposition: HOME SELF-CARE Condition: Stable Instructions (If sedation given, give patient instructions): Upper Respiratory Infection (ED), Fluid In The Ear (Serous Otitis Media) (ED), COVID-19 (Coronavirus Disease 2019) (ED) Additional Instructions: Please quarantine for 5 days after testing positive and restart quarantine if symptoms worsen. Please utilize Tylenol as needed for fevers and pain. It is recommended that you take an antihistamine such as Claritin or Zyrtec [id number] daily for fluid and levels behind her ears additionally Flonase may also help reduce fluid levels behind her ears. Taking vitamin C, Zinc, vitamin D 50 mcg, and melatonin may help symptom recovery. Is patient prescribed a controlled substance at d/c from ED?: No Referrals: Thaddeus Longoria MD [Primary Care Provider] - 1-2 days Time of Disposition: 16:57
[2022-10-05 17:13] VITALS: BP 131/81; PULSE 101; RESP 18; TEMP 101.8
== END 2022-10-05 17:12 | disposition home or self-care (01) ==
LOC: EC 15:00
DX: U07.1 COVID-19 (principal); H65.93 Unspecified nonsuppurative otitis media, bilateral; F90.9 Attention-deficit hyperactivity disorder, unspecified type; F41.9 Anxiety disorder, unspecified; F31.9 Bipolar disorder, unspecified; F17.200 Nicotine dependence, unspecified, uncomplicated
CPT/HCPCS: 87636; 99284

== ENCOUNTER 2023-01-01 16:35 | Emergency (ER) | payer OTHER ==
[2023-01-01 17:08] VITALS: TEMP 98
--- NOTE | 2023-01-01 17:30 | ED ---
General Adult HPI - General Chief complaint: Extremity Injury, Upper Stated complaint: right left numbness/pain Time Seen by Provider: 01/01/23 17:20 Source: patient, RN notes reviewed Mode of arrival: ambulatory Limitations: no limitations - History of Present Illness Initial comments: Patient is a pleasant 27-year-old male presenting to the emergency Department with arm discomfort. Symptoms are more so on the right. Symptoms have been occurring for over a week now. A wahl has discomfort over most of the right arm from the shoulder to the hand. 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 Patient also has some similar symptoms of the left hand without the left arm. Left hand has the entire hand involved. Patient has paresthesias and some discomfort. Right arm is paresthesias and some discomfort, severe at times with certain movements. No neck pain. No weakness. - Related Data Home Medications Medication Instructions Recorded Confirmed Ibuprofen [Motrin Ib] 400 mg PO Q8H PRN 05/07/20 08/04/21 D-Methorphan/PE/Acetaminophen 2 cap PO Q6H PRN 08/04/21 08/04/21 [Vicks Dayquil Liquicaps] Previous Rx's Medication Instructions Recorded Benzonatate [Tessalon Perles] 200 mg PO Q8H PRN #15 capsule 08/04/21 guaiFENesin [Mucinex] 600 mg PO Q12HR PRN #20 tab 08/04/21 Oseltamivir [Tamiflu] 75 mg PO Q12HR #10 cap 09/10/22 methylPREDNISolone Dose Pack 4 mg PO DIRECTED #21 tab 01/01/23 [Medrol Dose Pack] Allergies Allergy/AdvReac Type Severity Reaction Status Date / Time No Known Allergies Allergy Verified 01/01/23 17:08 Review of Systems ROS Statement: Those systems with pertinent positive or pertinent negative responses have been documented in the HPI. ROS Other: All systems not noted in ROS Statement are negative. Constitutional: Denies: fever Eyes: Denies: eye pain ENT: Denies: ear pain Respiratory: Denies: cough Cardiovascular: Denies: chest pain Endocrine: Denies: fatigue Gastrointestinal: Denies: abdominal pain Genitourinary: Denies: urgency Musculoskeletal: Denies: back pain Skin: Denies: lesions Neurological: Reports: as per HPI Past Medical History Past Medical History: No Reported History Additional Past Medical History / Comment(s): foot broken, cut left pinky finger. History of Any Multi-Drug Resistant Organisms: None Reported Past Surgical History: Adenoidectomy, Tonsillectomy Additional Past Surgical History / Comment(s): testicular sx. Past Anesthesia/Blood Transfusion Reactions: No Reported Reaction Past Psychological History: ADD/ADHD, Anxiety, Bipolar, Depression Smoking Status: Current every day smoker Past Alcohol Use History: Rare Past Drug Use History: Marijuana - Past Family History Mother Additional Family Medical History / Comment(s): Mother is alive at age 44 with history of bipolar, seizures, migaines. Father Additional Family Medical History / Comment(s): Patient does not know anything about his father. Sister(s) Additional Family Medical History / Comment(s): Patient has 2 sisters ages 22 and 21 with no major medical problems. Patient has 1 brother that he does not know. He does not have any children. General Exam Limitations: no limitations General appearance: alert, in no apparent distress Head exam: Present: normocephalic Eye exam: Present: normal appearance Neck exam: Present: normal inspection, full ROM. Absent: tenderness Respiratory exam: Present: normal lung sounds bilaterally Cardiovascular Exam: Present: regular rate, normal rhythm GI/Abdominal exam: Present: soft. Absent: tenderness Extremities exam: Present: normal inspection, full ROM, tenderness (Mild tenderness right upper arm without swelling.) Back exam: Present: normal inspection Neurological exam: Present: alert. Absent: motor sensory deficit Expanded Sensory exam: Upper Extremity Light Touch: Normal Motor strength exam: RUE: 5, LUE: 5 Psychiatric exam: Present: normal affect, normal mood Skin exam: Present: normal color Course Vital Signs 01/01/23 17:04 Temperature 98.0 F Pulse Rate 84 Respiratory 20 Rate Blood Pressure 132/89 O2 Sat by Pulse 99 Oximetry Medical Decision Making - Medical Decision Making Was pt. sent in by a medical professional or institution (, PA, [employer], urgent care, hospital, or fpc...) When possible be specific @ -No Did you speak to anyone other than the patient for history (EMS, parent, family, police, friend...)? What history was obtained from this source @ -No Did you review nursing and triage notes (agree or disagree)? Why? @ -I reviewed and agree with nursing and triage notes Were old charts reviewed (outside hosp., previous admission, EMS record, old EKG, old radiological studies, urgent care reports/EKG's, fpc records)? Report findings @ -No old charts were reviewed Differential Diagnosis (chest pain, altered mental status, abdominal pain women, abdominal pain men, vaginal bleeding, weakness, fever, dyspnea, syncope, headache, dizziness, GI bleed, back pain, seizure, CVA, palpatations, mental health)? @ -not applicable EKG interpreted by me (3pts min.). @ -As above X-rays interpreted by me (1pt min.). @ -Cervical spine x-ray shows no acute process CT interpreted by me (1pt min.). @ -None done U/S interpreted by me (1pt. min.). @ -None done What testing was considered but not performed or refused? (CT, X-rays, U/S, labs)? Why? @ -None What meds were considered but not given or refused? Why? @ -None Did you discuss the management of the patient with other professionals (professionals i.e. , PA, [employer], lab, RT, psych nurse, manager social media, processing technician, teacher, commercial escrow officer, case checker)? Give summary @ -No Was smoking cessation discussed for >3mins.? @ -No Was critical care preformed (if so, how long)? @ -No Were there social determinants of health that impacted care today? How? (Homelessness, low income, unemployed, alcoholism, drug addiction, transportation, low edu. Level, literacy, decrease access to med. care, [place] [facility], rehab)? @ -No Was there de-escalation of care discussed even if they declined (Discuss DNR or withdrawal of care, Hospice)? DNR status @ -No What co-morbidities impacted this encounter? (DM, HTN, Smoking, COPD, CAD, Cancer, CVA, ARF, Chemo, Hep., AIDS, mental health diagnosis, sleep apnea, morbid obesity)? @ -None Was patient admitted / discharged? Hospital course, mention meds given and route, prescriptions, significant lab abnormalities, going to OR and other pertinent info. @ -Patient evaluated and updated. Patient will be discharged with a course of steroids and advised to limit activities. Patient also recommended follow-up with primary care physician and possibly orthopedics Undiagnosed new problem with uncertain prognosis? @ -No Drug Therapy requiring intensive monitoring for toxicity (Heparin, Nitro, Insulin, Cardizem)? @ -No Were any procedures done? @ -No Diagnosis/symptom? @ -Arm strain Acute, or Chronic, or Acute on Chronic? @ -Acute Uncomplicated (without systemic symptoms) or Complicated (systemic symptoms)? @ -default Side effects of treatment? @ -No Exacerbation, Progression, or Severe Exacerbation? @ -No Poses a threat to life or bodily function? How? (Chest pain, [place], [place], pneumonia, PE, COPD, DKA, ARF, appy, cholecystitis, CVA, Diverticulitis, Homicidal, Suicidal, threat to staff... and all critical care pts) @ -No Disposition Clinical Impression: Muscle strain of upper extremity Disposition: HOME SELF-CARE Condition: Stable Instructions (If sedation given, give patient instructions): Muscle Strain (ED) Additional Instructions: Prescription sent to pharmacy. Please avoid activities and positions that make symptoms worse. Rest arm. Please follow-up with primary care physician in the next day or 2 for recheck. Please also follow-up with orthopedics. Return for weakness, increased pain, worsening or changing symptoms or other concerns. Prescriptions: methylPREDNISolone Dose Pack [Medrol Dose Pack] 4 mg PO DIRECTED #21 tab Is patient prescribed a controlled substance at d/c from ED?: No Referrals: Thaddeus Longoria MD [Primary Care Provider] - 1-2 days Time of Disposition: 19:20
--- NOTE | 2023-01-01 17:50 | XR ---
EXAMINATION TYPE: XR cervical spine comp DATE OF EXAM: 01/01/2023 COMPARISON: NONE HISTORY: Neck pain TECHNIQUE: 5 views FINDINGS: The cervical vertebra have normal spacing and alignment. Posterior elements are intact. No compression fracture. Neural foramina are widely patent. Atlantoaxial facet joint is normal. There ar e no cervical ribs. IMPRESSION: Negative cervical spine exam. No fracture.
--- NOTE | 2023-01-01 18:40 | US ---
EXAMINATION TYPE: US venous doppler duplex UE RT DATE OF EXAM: 01/01/2023 COMPARISON: NONE CLINICAL HISTORY: pain. Right arm pain SIDE PERFORMED: Right Right Arm: Negative for DVT IMPRESSION: No evidence of deep vein thrombosis in the right arm.
[2023-01-01 19:40] VITALS: BP 128/68; PULSE 87; RESP 18
== END 2023-01-01 19:38 | disposition home or self-care (01) ==
LOC: EC 16:35
DX: S46.911A Strain of unspecified muscle, fascia and tendon at shoulder and upper arm level, right arm, initial encounter (principal); F41.9 Anxiety disorder, unspecified; F31.9 Bipolar disorder, unspecified; F17.200 Nicotine dependence, unspecified, uncomplicated; F12.90 Cannabis use, unspecified, uncomplicated; X58.XXXA Exposure to other specified factors, initial encounter
CPT/HCPCS: 72050; 99284

== ENCOUNTER 2023-11-05 16:01 | Emergency (ER) | payer OTHER ==
[2023-11-05 16:23] VITALS: RESP 18
[2023-11-05] MEDS ORDERED: ORPHENADRINE 30 MG/ML 2 ML VIAL IM STA (17:19)
--- NOTE | 2023-11-05 18:01 | XR ---
EXAMINATION TYPE: XR lumbar spine 2 or 3V DATE OF EXAM: 11/05/2023 5:47 PM CLINICAL INDICATION:Male, 28 years old with history of back pain s/p fall; [facility] COMPARISON: None TECHNIQUE: Frontal, lateral and coned in L5-S1 lateral views of the spine. FINDINGS: No evidence of any acute osseous pathology. No evidence of loss of vertebral body height i s seen. Mild straightening of the lumbar lordotic curve.. No significant degeneration changes through out the spine. IMPRESSION: No acute fracture.
--- NOTE | 2023-11-05 19:09 | ED ---
Back Pain HPI - General Chief Complaint: Back Pain/Injury Stated Complaint: back pain Time Seen by Provider: 11/05/23 16:28 Source: patient Limitations: no limitations - History of Present Illness Initial Comments: Otherwise healthy 28-year-old male presenting to the ED with a chief complaint of back pain. Patient states approximately a week ago was at the bottom of a [place] when a teenager on a slide collided with him causing him to fall backwards landing on his back/buttocks. Since then, patient reports back pain with poor relief of using both Motrin and Tylenol. No saddle anesthesia or incontinence. Due to ongoing pain presenting to the ED for further evaluation. Denies urinary symptoms. No other complaints. - Related Data Home Medications Medication Instructions Recorded Confirmed Ibuprofen [Motrin Ib] 400 mg PO Q8H PRN 05/07/20 08/04/21 D-Methorphan/PE/Acetaminophen 2 cap PO Q6H PRN 08/04/21 08/04/21 [Vicks Dayquil Liquicaps] Previous Rx's Medication Instructions Recorded Benzonatate [Tessalon Perles] 200 mg PO Q8H PRN #15 capsule 08/04/21 guaiFENesin [Mucinex] 600 mg PO Q12HR PRN #20 tab 08/04/21 Oseltamivir [Tamiflu] 75 mg PO Q12HR #10 cap 09/10/22 methylPREDNISolone Dose Pack 4 mg PO DIRECTED #21 tab 01/01/23 [Medrol Dose Pack] Cyclobenzaprine [Flexeril] 10 mg PO TID PRN #15 tab 11/05/23 Allergies Allergy/AdvReac Type Severity Reaction Status Date / Time No Known Allergies Allergy Verified 11/05/23 16:15 Review of Systems ROS Statement: Those systems with pertinent positive or pertinent negative responses have been documented in the HPI. ROS Other: All systems not noted in ROS Statement are negative. Past Medical History Past Medical History: No Reported History Additional Past Medical History / Comment(s): foot broken, cut left pinky finger. History of Any Multi-Drug Resistant Organisms: None Reported Past Surgical History: Adenoidectomy, Tonsillectomy Additional Past Surgical History / Comment(s): testicular sx. Past Anesthesia/Blood Transfusion Reactions: No Reported Reaction Past Psychological History: ADD/ADHD, Anxiety, Bipolar, Depression Smoking Status: Current every day smoker Past Alcohol Use History: Rare Past Drug Use History: Marijuana - Past Family History Mother Additional Family Medical History / Comment(s): Mother is alive at age 44 with history of bipolar, seizures, migaines. Father Additional Family Medical History / Comment(s): Patient does not know anything about his father. Sister(s) Additional Family Medical History / Comment(s): Patient has 2 sisters ages 22 and 21 with no major medical problems. Patient has 1 brother that he does not know. He does not have any children. General Exam Limitations: no limitations General appearance: alert, in no apparent distress Eye exam: Present: normal appearance Neck exam: Present: normal inspection Respiratory exam: Present: normal lung sounds bilaterally GI/Abdominal exam: Present: soft Extremities exam: Present: other (Strength and sensation equal and intact in bilateral lower extremities.) Back exam: Present: other (Right lower lumbar paraspinal tenderness to palpation.) Neurological exam: Present: alert, oriented X3 Skin exam: Present: warm, dry Course Vital Signs 11/05/23 16:10 Temperature 98.7 F Pulse Rate 87 Respiratory 18 Rate Blood Pressure 118/70 O2 Sat by Pulse 98 Oximetry Medical Decision Making - Medical Decision Making Was pt. sent in by a medical professional or institution (DEEP Humphreys, CRUISE DIRECTOR, urgent care, hospital, or retirement...) When possible be specific @ -No Did you speak to anyone other than the patient for history (EMS, parent, family, police, friend...)? What history was obtained from this source @ -No Did you review nursing and triage notes (agree or disagree)? Why? @ -I reviewed and agree with nursing and triage notes Were old charts reviewed (outside hosp., previous admission, EMS record, old EKG, old radiological studies, urgent care reports/EKG's, retirement records)? Report findings @ -No old charts were reviewed Differential Diagnosis (chest pain, altered mental status, abdominal pain women, abdominal pain men, vaginal bleeding, weakness, fever, dyspnea, syncope, headache, dizziness, GI bleed, back pain, seizure, CVA, palpatations, mental health, musculoskeletal)? @ -Differential Back Pain: Strain, zoster, cauda equina syndrome, epidural abscess, vertebral osteomyelitis, discitis, fracture, subluxation, disc herniation, DJD, spinal stenosis, dissection, AAA, pancreatitis, peptic ulcer disease, pyelonephritis, kidney stone, this is not meant to be an all-inclusive list. EKG interpreted by me (3pts min.). @ -None X-rays interpreted by me (1pt min.). @ -X-ray of the lumbar spine interpreted by me showing no evidence of acute finding. CT interpreted by me (1pt min.). @ -None done U/S interpreted by me (1pt. min.). @ -None done What testing was considered but not performed or refused? (CT, X-rays, U/S, labs)? Why? @ -None What meds were considered but not given or refused? Why? @ -None Did you discuss the management of the patient with other professionals (professionals i.e. , PA, CRUISE DIRECTOR, lab, RT, psych nurse, social and human services assistant, deputy county clerk, teacher, admissions officer, family service caseworker)? Give summary @ -No Was smoking cessation discussed for >3mins.? @ -No Was critical care preformed (if so, how long)? @ -No Were there social determinants of health that impacted care today? How? (Homelessness, low income, unemployed, alcoholism, drug addiction, transportation, low edu. Level, literacy, decrease access to med. care, shelter, rehab)? @ -No Was there de-escalation of care discussed even if they declined (Discuss DNR or withdrawal of care, Hospice)? DNR status @ -No What co-morbidities impacted this encounter? (DM, HTN, Smoking, COPD, CAD, Cancer, CVA, ARF, Chemo, Hep., AIDS, mental health diagnosis, sleep apnea, morbid obesity)? @ -None Was patient admitted / discharged? Hospital course, mention meds given and route, prescriptions, significant lab abnormalities, going to OR and other pertinent info. @ -Discharge 28-year-old male presenting to the ED with back pain status post fall approximately week and a half ago. No saddle anesthesia or incontinence. No urinary symptoms. X-ray revealed no evidence of acute finding. Patient had significant improvement of pain with Norflex. Symptoms likely musculoskeletal in nature. Discharged home with prescription for Flexeril. Discussed return precautions with patient and family who verbalized agreement. Undiagnosed new problem with uncertain prognosis? @ -No Drug Therapy requiring intensive monitoring for toxicity (Heparin, Nitro, Insulin, Cardizem)? @ -No Were any procedures done? @ -No Diagnosis/symptom? @ -Back pain Acute, or Chronic, or Acute on Chronic? @ -Acute Uncomplicated (without systemic symptoms) or Complicated (systemic symptoms)? @ -Uncomplicated Side effects of treatment? @ -No Exacerbation, Progression, or Severe Exacerbation? @ -No Poses a threat to life or bodily function? How? (Chest pain, USA, ID, pneumonia, PE, COPD, DKA, ARF, appy, cholecystitis, CVA, Diverticulitis, Homicidal, Suicidal, threat to staff... and all critical care pts) @ -No Disposition Clinical Impression: Back pain Disposition: HOME SELF-CARE Condition: Good Instructions (If sedation given, give patient instructions): Acute Low Back Pain (ED) Additional Instructions: Please return to the Emergency Department if symptoms worsen or any other concerns. Please follow-up with your primary care provider. Prescriptions: Cyclobenzaprine [Flexeril] 10 mg PO TID PRN #15 tab PRN Reason: Muscle Spasm Is patient prescribed a controlled substance at d/c from ED?: No Referrals: Thaddeus Longoria MD [Primary Care Provider] - 1-2 days Time of Disposition: 19:14
[2023-11-05] MEDS ORDERED: CYCLOBENZAPRINE 10MG STARTER 3 TAB BTL PO STA (19:13)
[2023-11-05 19:39] VITALS: BP 120/72; PULSE 82; TEMP 98.2
== END 2023-11-05 19:33 | disposition home or self-care (01) ==
LOC: EC 16:01
DX: M54.50 Low back pain, unspecified (principal); F17.200 Nicotine dependence, unspecified, uncomplicated; F12.90 Cannabis use, unspecified, uncomplicated; W03.XXXA Other fall on same level due to collision with another person, initial encounter
CPT/HCPCS: 72100; 99283; 96372; J2360